=== PATIENT | female | born 1975 | race Caucasian/White ===

== ENCOUNTER 2017-08-14 08:30 | Outpatient (RCR) | payer MEDICAID, SELFPAY | END 2017-08-14 23:59 | LOC: PT 08:30 | PROVIDERS: Visit Provider Orthopaedic Surgery | DX: M77.10 Lateral epicondylitis, unspecified elbow (principal) | CPT/HCPCS: 97010; 97014; 97035; 97110; 97140; 97161; G0283 ==

== ENCOUNTER → 2017-10-22 08:21 | Outpatient (CLI) | payer MEDICAID, SELFPAY ==
--- NOTE | 2017-10-22 08:25 | MM_ITS ---
MM Dig screening mamm BI w/CAD CAD Screening COMPARISON: Digital mammograms 10/17/2016 and 04/07/2015 INDICATION: There is a history of breast cancer in patient's mother diagnosed before menopause. TECHNIQUE: Standard CC and MLO images were obtained. R2 CAD reviewed. FINDINGS: Scattered fibroglandular densities are seen throughout both breast and the findings are bilateral and symmetrical. There is no suspicious lesion and there are no suspicious microcalcifications. IMPRESSION: Fibrofatty parenchyma with no suspicious lesion seen BI-RADS Category: 1 Negative RECOMMENDED FOLLOW-UP: 1YR - 1 YEAR FOLLOW-UP (A letter has been sent to the patient regarding results of the study.)
== END ==
PROVIDERS: PCP Emergency Medicine; Visit Provider Nurse Practitioner Obstetrics & Gynecology
DX: Z12.31 Encounter for screening mammogram for malignant neoplasm of breast (principal)
CPT/HCPCS: 77067

== ENCOUNTER 2017-11-06 14:14 | Emergency (ER) | payer MEDICAID, SELFPAY ==
[2017-11-06 14:16] VITALS: BP 154/87; PULSE 88; RESP 20; TEMP 37; O2SAT 99; BMI 42.9
--- NOTE | 2017-11-06 14:40 | CT_ITS ---
CT abdomen pelvis w con Ordering Physician: Antonio Castillo MD Patient Age: 42 years: Female HISTORY: ITS.REASON: RUQ abd pain, with nausea TECHNIQUE: Helical CT abdomen pelvis following 35 cc Isovue-370. However no oral contrast utilized. COMPARISON :None FINDINGS Lung bases appear clear no significant active disease. There may be some mild dependent atelectasis posterior lung bases.. Heart upper normal in size. .. Abdomen.: Liver unremarkable.. Spleen unremarkable. l. Pancreas. No ductal dilatation.. Head and body unremarkable. Note slight generous head and uncinate particularly on the coronal view... I believe it most likely reflects the downward tilting orientation and anatomy of the structures on the coronal image as the axial & sagittal image does not show any significant thickening or enlargement. The homogeneous architecture also noted with no discrete mass evident. Adrenals unremarkable.. Gallbladder. No calcified stones. No biliary ductal dilatation Kidneys appear normal. Normal enhancement. No lesions. No calculi. No obstruction. Aorta and branches unremarkable. GI tract. Appendix normal. Terminal ileum unremarkable. Small bowel normal caliber no wall thickening or dilatation Large bowel mild to moderate stool and gas throughout the colon. No significant constipation. There may be some trace some minimal liquid stool proximal right colon but this is unimpressive. Prominent fatty changes at the ileocecal valve reflecting ileocecal lipomatosis here.. Benign incidental feature Pelvis. Hysterectomy. Postsurgical changes and clips at the pelvis. No adnexal masses. No free fluid nor free air in the abdomen or pelvis IMPRESSION no acute findings in the abdomen or pelvis. No urinary tract calculi nor obstruction. Appendix is normal. No bowel dilatation Mild to moderate in colon. Moderate gas. No constipation Slight generous head of pancreas on coronal view most likely related to its position/anatomy Not felt to be of significance but suggest consider correlate amylase and lipase if epigastric pain Numerous moderate size nodes of the groin nonspecific. No pelvic nor mesenteric nor retroperitoneal adenopathy. :
--- NOTE | 2017-11-06 14:41 | US_ITS ---
US gallbladder Ordering Physician: Antonio Castillo MD Patient Age: 42 years: Female HISTORY: ITS.REASON: ruq abd pain nausea. Diarrhea RUQ pain. CT today as well TECHNIQUE: Right quadrant ultrasound COMPARISON : CT abdomen from today FINDINGS Pancreas. Head, body pancreas unremarkable. The tail is obscured by overlying gas Liver. No focal lesions. No biliary ductal dilatation. Diffuse fatty changes of liver. Slightly more focal fatty suggested noted. No significant findings on CT . Common duct unremarkable. Portal vein normal caliber. Gallbladder.,,,comet Tail effect seen in gallbladder. Likely reflect 2 foci of cholesterolosis gallbladder, with possible small 3 mm polyp. It. No gallbladder dilatation... Borderline gallbladder wall thickening in some regions. 3.2 mm common duct Right kidney. Normal 10.4 cm in length IMPRESSION: 1. Gallbladder. No gallstones Note 2 foci of Cholesterolosis at Gallbladder likely present at gallbladder wall Possible less than 3 mm gallbladder polyp also noted towards anterior wall as well . 2. Liver with Diffusely changes liver. Increased small area slightly more focal focal fatty change noted anterior liver No significant findings at liver.
[2017-11-06 14:50] LABS: Basophils % 0.3 % (0.1-2.0); Eosinophils # 0.3 K/mm3 (0.0-0.4); Eosinophils % 3.5 % (0.1-12.0); Hematocrit 44.8 % (37.0-47.0); Hemoglobin 14.9 g/dL (12.2-16.2); Lymphocytes # 2.4 K/mm3 (0.7-4.5); Lymphocytes % 27.9 K/mm3 (10-50); Mean Corpuscular HGB Conc 33.2 g/dL (31.8-35.4); Mean Corpuscular Volume 90.3 fl (81-99); Mean Platelet Volume 7.8 fl (7.4-10.4); Monocytes # 0.5 K/mm3 (0.1-1.0); Monocytes % 5.3 % (1.7-9.3); Neutrophils # 5.5 K/mm3 (1.8-7.8); Neutrophils % 62.9 % (37.0-80.0); Platelet Count 353 K/mm3 (142-424); Red Blood Count 4.96 M/mm3 (4.20-5.40); Red Cell Distribution Width 13.5 % (11.5-17.5); White Blood Count 8.7 K/mm3 (4.8-10.8)
[2017-11-06 15:00] LABS: Microscopic, Urine URINE MICROSCOPIC (MICROSCOPIC)
[2017-11-06 15:07] LABS: Appearance,Urine CLEAR (Clear); Bilirubin,Urine Negative (Negative); Blood, Urine TRACE-I (Negative); Color,Urine YELLOW (Yellow); Glucose,Urine (UA) Negative (Negative); Ketones,Urine Negative (Negative); Leukocyte Esterase,Urine Negative (Negative); Nitrate,Urine Negative (Negative); PH,Urine 5.5 (5.0-8.5); Protein,Urine Negative (Negative); Specific Gravity, Urine 1.025 (1.005-1.030); Urobilinogen,Urine 0.2 EU/dl (0.2)
[2017-11-06 15:13] LABS: Alanine Aminotransferase 39 U/L (12-78); Albumin Level 3.4 gm/dL (3.4-5.0); Albumin/Globulin Ratio 0.8 (1.1-1.8); Alkaline Phosphatase 120 U/L (46-116); Amylase 34 U/L (25-125); Anion Gap 12.1 mEq/L (5-15); Aspartate Amino Transferase 22 U/L (15-37); Bilirubin,Total 0.2 mg/dL (0.2-1.0); Blood Urea Nitrogen 9 mg/dL (7-18); Calcium 8.4 mg/dL (8.5-10.1); Carbon Dioxide 27 mmol/L (21.0-32.0); Chloride 104 mmol/L (98-107); Creatinine Clearance Estimated 78 mL/min (0-300); Creatinine,Serum 0.82 mg/dL (0.55-1.02); Estimated Glomerular Filt Rate 77 ml/min (>60); GFR (African American) 93 ML/MIN (>60); Globulin 4.1 gm/dl (1.3-3.2); Glucose 107 mg/dL (74-106); Lipase 93 u/L (73-393); Potassium 4.1 mmoL/L (3.5-5.1); Sodium 139 mmol/L (136-145); Total Protein,Serum 7.5 gm/dL (6.4-8.2)
[2017-11-06 15:27] LABS: Bacteria,Urine 2+ /lpf; Squamous Epithelial Cell,Urine 20-50 #/hpf (0-5)
[2017-11-06 16:12] VITALS: BP 127/89; PULSE 55; RESP 18; O2SAT 100
--- NOTE | 2017-11-06 16:57 | HMH.EDGENADL ---
ED Disposition Clinical Impression: RUQ abdominal pain Disposition: Home, Self-Care Condition on Discharge: Good Instructions: DI for Acute Abdomen Additional Instructions: Please take the medications prescribed as directed, follow-up with Dr. Freeman at your earliest convenience for additional outpatient workup (to include a HIDA scan). Prescriptions: Ondansetron [Zofran 4mg ODT] 4 mg PO QIDP PRN #20 tab.rapdis PRN Reason: Nausea Tramadol HCl [Ultram 50mg tablet] 50 mg PO QIDP PRN #8 tab PRN Reason: Moderate Pain Referrals: Chito Freeman MD [Primary Care Provider] - Time of Disposition: 17:10 - Critical Care Critical Care Time: No Attestation: On 11/06/17, the high probability of a clinically significant, sudden or life threatening deterioration of the following system(s) required my full and direct attention, intervention and personal management. The time I documented below is in addition to time spent performing reported procedures but includes the following listed in this critical care notation. Medical Decision Making - Medical Records Medical records reviewed: Yes: I reviewed the patient's medical records. - Lazaro Inquiry Pt receiving controlled substance: No Vital Signs: 11/06/17 14:16 11/06/17 16:12 11/06/17 17:32 Temperature 98.6 F 98.0 F Temperature Source Oral Oral Pulse Rate 60 Pulse Rate [Right Radial] 88 55 L Respiratory Rate 20 18 16 Blood Pressure 112/66 Blood Pressure [Right Arm] 154/87 127/89 Blood Pressure Mean [Right Arm] 109 101 Blood Pressure Source Automatic Cuff Blood Pressure Source [Right Arm] Automatic Cuff Automatic Cuff Blood Pressure Position Sitting Blood Pressure Position [Right Arm] Supine Sitting 02 Sat by Pulse Oximetry 99 100 Oxygen Delivery Method Room Air Room Air Room Air - Lab Data Lab results reviewed: Yes: I reviewed the patient's lab results. Lab Results 11/06/17 14:40: WBC 8.7, RBC 4.96, Hgb 14.9, Hct 44.8, MCV 90.3, MCH 30.0, MCHC 33.2, RDW 13.5, Plt Count 353, MPV 7.8, Neut % (Auto) 62.9, Lymph % (Auto) 27.9, [place] % (Auto) 5.3, Eos % (Auto) 3.5, Baso % (Auto) 0.3, Neut # (Auto) 5.5, Lymph # (Auto) 2.4, [place] # (Auto) 0.5, Eos # (Auto) 0.3, Baso # (Auto) 0.0 11/06/17 14:40: Sodium 139, Potassium 4.1, Chloride 104, Carbon Dioxide 27, Anion Gap 12.1, BUN 9, Creatinine 0.82, Estimated Creat Clear 78, Estimated GFR 77, Est GFR ( Amer) 93, Glucose 107 H, Calcium 8.4 L, Total Bilirubin 0.2, AST 22, ALT 39, Alkaline Phosphatase 120 H, Total Protein 7.5, Albumin 3.4, Globulin 4.1 H, Albumin/Globulin Ratio 0.8 L, Amylase 34, Lipase 93 11/06/17 14:45: Urine Color Yellow, Urine Appearance Clear, Urine pH 5.5, Ur Specific [place] 1.025, Urine Protein Negative, Urine Glucose (UA) Negative, Urine Ketones Negative, Urine Blood Trace-i, Urine Nitrate Negative, Urine Bilirubin Negative, Urine Urobilinogen 0.2, Ur Leukocyte Esterase Negative, Urine RBC None, Urine WBC 3-5, Ur Squamous Epith Cells 20-50, Urine Bacteria 2+ Result diagrams: 11/06/17 14:40 11/06/17 14:40 Orders (Tests/Meds): ED MEDICATIONS Discontinued Medications Generic Name Dose Route Start Last Admin Trade Name Alexsandra PRN Reason Stop Dose Admin Hydrocodone Bitart/Acetaminophen 1 tab 11/06/17 17:01 11/06/17 17:10 [place]camore 10/325mg Tablet PO 11/06/17 17:02 1 tab ONCE ONE Administration Sodium Chloride 1,000 mls @ 999 mls/hr 11/06/17 14:45 11/06/17 14:46 Sod Chlor 0.9% 1000ml Bag IV 11/06/17 15:45 999 mls/hr .Q1H1M MITCH Administration Iopamidol 75 ml 11/06/17 15:24 11/06/17 15:25 [id number]-802; 100ml Vial IV 11/06/17 15:25 75 ml ONCE ONE Administration Ketorolac Tromethamine 30 mg 11/06/17 14:32 11/06/17 14:46 Toradol 30mg/Ml Vial IV 11/06/17 14:33 30 mg ONCE ONE Administration Morphine Sulfate 4 mg 11/06/17 15:59 11/06/17 16:08 Morphine 4mg/Ml Syringe IV 11/06/17 16:00 4 mg ONCE ONE Administration Ondan
[2017-11-06 17:32] VITALS: BP 112/66; PULSE 60; RESP 16; TEMP 36.7; O2SAT 97
== END 2017-11-06 17:34 | disposition home or self-care (01) ==
PROVIDERS: Emergency Provider Emergency Medicine; PCP Internal Medicine Adolescent Medicine
DX: R10.11 Right upper quadrant pain (principal); R11.2 Nausea with vomiting, unspecified; Z88.2 Allergy status to sulfonamides; Z88.6 Allergy status to analgesic agent
CPT/HCPCS: 74177; 76705; 80053; 81001; 82150; 83690; 85025; 87086; 96365; 96375; 99282; 99283; J2405; Q9967

== ENCOUNTER → 2017-11-13 09:49 | Outpatient (CLI) | payer MEDICAID, SELFPAY ==
--- NOTE | 2017-11-13 09:54 | NM_ITS ---
NM hepatobiliary wo pharm HISTORY: Right upper quadrant pain ITS.REASON: ABDOMINAL PAIN ORDERING PHYSICIAN: Chito Freeman MD PATIENT AGE: 42 years COMPARISON: 11/06/2017 DOSE: 8.44 mCi Choletec Fatty meal: Ensure. Pain is reported following a fatty meal FINDINGS: Homogeneous activity is present within the hepatic parenchyma. Activity is present in the gallbladder by 30 minutes. Activity is present in the small bowel by 10 minutes. The gallbladder ejection fraction is calculated to be 58%. The patient did report pain with fatty meal. IMPRESSION: No evidence of common or cystic duct obstruction with normal gallbladder ejection fraction
== END ==
PROVIDERS: PCP Internal Medicine Adolescent Medicine; Visit Provider Internal Medicine Adolescent Medicine
DX: R10.11 Right upper quadrant pain (principal)
CPT/HCPCS: 78226; A9537

== ENCOUNTER → 2017-12-19 06:08 | Outpatient (CLI) | payer MEDICAID, SELFPAY ==
--- NOTE | 2017-12-19 | NM_ITS ---
History and Indications: Chest pain, fatigue abnormal EKG tobacco use. Procedure: Patient exercised on Hubert protocol 6 metastases and 30 seconds, resting heart rate was 61 bpm resting blood pressure 134/81 with exercise maximum heart rate achieved was 1 49 bpm which is equal to 83% of the maximum predicted heart rate and a blood pressure was 190/85. Test was started due to shortness of breath and fatigue patient denied any complained of chest pain. Patient has adequate exercise capacity achieved 7mets of workload on treadmill, the blood pressure response to exercise was adequate. Patient did not achieve the target heart rate Electrocardiogram: Resting electrocardiogram showed sinus rhythm, with exercise there is less than 1.[address] segment depression noted from the baseline EKG. The EKG portion of the exercise Myoview is nondiagnostic as patient did not achieve the target heart rate. Cardiac stress and resting SPECT images: Cardiac stress and rest SPECT images were obtained using technetium 99 Myoview 10.0 mCi at stress and 9.9 mCi at rest, gated SPECT further analysis of segmental wall motion and calculation of the ejection fraction also done. Cardiac stress and rest SPECT images show decreased tracer activity in the anterior apical wall which improves on the resting images suggestive of reversible ischemia, computer derived ejection fraction is 59% with mild apical wall motion abnormality, right ventricle is normal size and contractility. Conclusion: 1. The EKG portion of the exercise Myoview is nondiagnostic as patient did not achieve the target heart rate, patient has a adequate exercise capacity achieved 7mets of workload on treadmill, the blood pressure response to exercise was adequate, there was no exercise-induced chest discomfort, test was started due to shortness of breath. 2. Scintigraphic evidence of mild reversible ischemia involving the anteroapical and apical wall, computer derived ejection fraction is 59% with segmental wall motion abnormality described above, right ventricle is normal size and contractility. 3. Abnormal exercise Myoview study.
== END ==
PROVIDERS: PCP Internal Medicine Adolescent Medicine; Visit Provider Internal Medicine Adolescent Medicine
DX: R07.9 Chest pain, unspecified (principal)
CPT/HCPCS: 78452; 93017; A9502

== ENCOUNTER → 2018-01-08 08:13 | Outpatient (CLI) | payer MEDICAID, SELFPAY ==
[2018-01-08 09:08] LABS: Anion Gap 12.2 mEq/L (5-15); Blood Urea Nitrogen 13 mg/dL (7-18); Calcium 9.1 mg/dL (8.5-10.1); Carbon Dioxide 28 mmol/L (21.0-32.0); Chloride 103 mmol/L (98-107); Creatinine,Serum 0.86 mg/dL (0.55-1.02); Estimated Glomerular Filt Rate 73 ml/min (>60); GFR (African American) 88 ML/MIN (>60); Glucose 100 mg/dL (74-106); Potassium 4.2 mmoL/L (3.5-5.1); Sodium 139 mmol/L (136-145)
== END ==
PROVIDERS: PCP Internal Medicine Adolescent Medicine; Visit Provider Physician Assistant
DX: I50.30 Unspecified diastolic (congestive) heart failure (principal); R94.30 Abnormal result of cardiovascular function study, unspecified; R06.00 Dyspnea, unspecified; R60.9 Edema, unspecified; Z72.0 Tobacco use
CPT/HCPCS: 36415; 80048

== ENCOUNTER → 2018-01-15 12:47 | Outpatient (CLI) | payer MEDICAID, SELFPAY ==
[2018-01-15 14:37] LABS: Anion Gap 15.6 mEq/L (5-15); Blood Urea Nitrogen 12 mg/dL (7-18); Carbon Dioxide 29 mmol/L (21.0-32.0); Chloride 98 mmol/L (98-107); Creatinine,Serum 0.94 mg/dL (0.55-1.02); Estimated Glomerular Filt Rate 66 ml/min (>60); GFR (African American) 79 ML/MIN (>60); Glucose 107 mg/dL (74-106); Potassium 3.6 mmoL/L (3.5-5.1); Sodium 139 mmol/L (136-145)
== END ==
PROVIDERS: PCP Internal Medicine Adolescent Medicine; Visit Provider Physician Assistant
DX: G47.33 Obstructive sleep apnea (adult) (pediatric) (principal); R40.0 Somnolence; G47.9 Sleep disorder, unspecified; R06.83 Snoring
CPT/HCPCS: 36415; 80048; 95806

== ENCOUNTER → 2018-01-22 09:41 | Outpatient (CLI) | payer MEDICAID, SELFPAY ==
[2018-01-22 11:02] LABS: Anion Gap 10.7 mEq/L (5-15); Blood Urea Nitrogen 9 mg/dL (7-18); Calcium 9.1 mg/dL (8.5-10.1); Carbon Dioxide 30 mmol/L (21.0-32.0); Chloride 102 mmol/L (98-107); Creatinine,Serum 0.84 mg/dL (0.55-1.02); Estimated Glomerular Filt Rate 75 ml/min (>60); GFR (African American) 90 ML/MIN (>60); Glucose 92 mg/dL (74-106); Potassium 3.7 mmoL/L (3.5-5.1); Sodium 139 mmol/L (136-145)
== END ==
PROVIDERS: Visit Provider Physician Assistant
DX: E87.6 Hypokalemia (principal); E86.0 Dehydration; Z72.0 Tobacco use; I51.9 Heart disease, unspecified; R94.30 Abnormal result of cardiovascular function study, unspecified
CPT/HCPCS: 36415; 80048; 83880

== ENCOUNTER → 2018-01-29 11:15 | Outpatient (CLI) | payer MEDICAID, SELFPAY ==
[2018-01-29 13:11] LABS: Anion Gap 10.6 mEq/L (5-15); Blood Urea Nitrogen 12 mg/dL (7-18); Calcium 8.7 mg/dL (8.5-10.1); Carbon Dioxide 27 mmol/L (21.0-32.0); Chloride 105 mmol/L (98-107); Creatinine,Serum 0.83 mg/dL (0.55-1.02); Estimated Glomerular Filt Rate 76 ml/min (>60); GFR (African American) 92 ML/MIN (>60); Glucose 88 mg/dL (74-106); Potassium 4.6 mmoL/L (3.5-5.1); Sodium 138 mmol/L (136-145)
== END ==
PROVIDERS: Visit Provider Internal Medicine
DX: E87.6 Hypokalemia (principal); I50.9 Heart failure, unspecified; I50.30 Unspecified diastolic (congestive) heart failure
CPT/HCPCS: 36415; 80048

== ENCOUNTER → 2018-02-17 12:43 | Outpatient (CLI) | payer MEDICAID, SELFPAY ==
--- NOTE | 2018-02-17 12:45 | CA_ITS ---
PROCEDURE: 2-D M-mode and color Doppler study INDICATIONS FOR THE TEST: Chest pain+ COPD Heart Murmur Tobacco Smoking+ Palpitations+ Fatigue+ Syncope Edema+ Hypertension Diabetes Mellitus Rheumatic Fever SOB+GUDINO+Obesity+Hyperlipidemia Family History HD+ Additional History dizziness, CHF, diastolic dysfunction, ALEXIA, GERD PATIENT INFORMATION HEIGHT: 65 WEIGHT:246 GENDER: Female B/P: 118/91 2-D/M-MODE INTERPRETATION: 2-D MEASUREMENTS OBSERVED VALUES IN CMS Right Ventricular Dimension (RVDd) 2.0 Interventricular Septum (Thickness)(IVsd) 0.9 Left Ventricular Internal Dimensions(LVIDd) 4.7 Left Ventricular Posterior Wall (Thickness)(LVPWd) 0.9 Aortic Root 2.8 Aortic Cusp Separation 2.0 Left Atrial Dimensions (LAD) 3.9 2D 1. Left atrium is upper limit of the normal size, left ventricle is normal size, there is no concentric left ventricular hypertrophy, visually estimated ejection fraction 55% with no obvious regional wall motion abnormality. 2. The right atrium and right ventricle are relatively normal size and function. 3. The aortic valve is minimally thickened and fibrosed. 4. The mitral and tricuspid valve are grossly normal. 5. The pulmonic valve is poorly visualized. 6. No significant pericardial effusion noted. DOPPLER INTERROGATION: Doppler interrogation of the aortic, mitral and tricuspid valvular presence of mild mitral and tricuspid regurgitation, tricuspid velocity insufficient for calculation of the right ventricular systolic pressure, diastolic parameters are within normal range. CONCLUSION: 1. Normal left ventricular size, visually estimated ejection fraction 55% with no obvious regional wall motion abnormality, diastolic parameters are within normal range. 2. Mild mitral and tricuspid regurgitation 3. No significant pericardial effusion noted.
== END ==
PROVIDERS: PCP Internal Medicine Adolescent Medicine; Visit Provider Internal Medicine
DX: R06.00 Dyspnea, unspecified (principal); I50.9 Heart failure, unspecified; Z72.0 Tobacco use
CPT/HCPCS: 93306

== ENCOUNTER → 2018-10-27 16:18 | Outpatient (CLI) | payer MEDICAID, SELFPAY ==
--- NOTE | 2018-10-27 16:23 | MM_ITS ---
MM Dig screening mamm BI w/CAD ORDERING PHYSICIAN : Carlos Owens MD PATIENT AGE: 43 years GENDER: Female COMPARISON: Bilateral screening mammograms from October 2017, 2016, 2015,April 2015 INDICATION: . Routine Screening Mammogram no hormones. No new complaints Family history. Mother with breast cancer age 30 TECHNIQUE: Standard CC and MLO images were obtained. R2 CAD reviewed. FINDINGS: Moderate residual fibroglandular elements throughout both breasts most evident central breast and towards upper outer quadrant. LEFT BREAST: . small focal densities at the deep left breast more evident today previous comparison studies. The area labeled X is I suspect has shown subtle progression now measures up to 8 mm x 4 mm.. This Area labeled X has become slightly more evident over the past 2 years. Other areas may be stable merely accentuated by projection. Suggest CC & MLO spot views, with full 90 degrees view left breast along with ultrasound survey left breast..Cautious approach warranted particularly noting positive family history RIGHT BREAST: slight situation of where most likely fibroglandular at the deep upper outer quadrant right breast. This is most notable on MLO view. These likely are stable features /2... Air more pronounced than previous studies I would suggest include spot MLO and 90 degrees and cc view of this area well stability. -------IMPRESSION: 1. Left breast. : Nodularity at deep breast is slightly more apparent on today's study. This may in part be due to technique but I would question subtle progression of density at X. - Recommend spot views & ultrasound LEFT breast to further evaluate 2. Right breast. Mild accentuation of fibroglandular elements in the deep breast on today's study. Most likely is due to technique but would suggest spot views here as well. BI-RADS Category: 0 Need Additional Imaging Evaluation RECOMMENDED FOLLOW-UP: IMM - IMMEDIATE FOLLOW-UP RECOMMENDED Additional spot views bilaterally along with ultrasound left breast (A letter has been sent to the patient regarding results of the study.)
== END ==
PROVIDERS: PCP Internal Medicine Adolescent Medicine; Visit Provider Nurse Practitioner Obstetrics & Gynecology
DX: Z12.31 Encounter for screening mammogram for malignant neoplasm of breast (principal)
CPT/HCPCS: 77067

== ENCOUNTER → 2018-11-05 11:13 | Outpatient (CLI) | payer MEDICAID, SELFPAY ==
[2018-11-05 12:19] LABS: Blood Urea Nitrogen 13 mg/dL (7-18); Calcium 8.9 mg/dL (8.5-10.1); Carbon Dioxide 26 mmol/L (21.0-32.0); Chloride 103 mmol/L (98-107); Creatinine,Serum 0.94 mg/dL (0.55-1.02); Estimated Glomerular Filt Rate 65 ml/min (>60); GFR (African American) 79 ML/MIN (>60); Glucose 100 mg/dL (74-106); Sodium 140 mmol/L (136-145)
== END ==
PROVIDERS: Nurse Practitioner Family; Visit Provider Internal Medicine
DX: I50.9 Heart failure, unspecified (principal); I51.89 Other ill-defined heart diseases; R05 Cough; R60.9 Edema, unspecified
CPT/HCPCS: 36415; 80048

== ENCOUNTER → 2018-11-17 13:31 | Outpatient (CLI) | payer MEDICAID, SELFPAY ==
--- NOTE | 2018-11-17 13:34 | US_ITS ---
MM Dig mamm BI DX w/CAD, US breast LT complete, US breast RT complete INDICATION: ORDERING PHYSICIAN: Carlos Owens MD PATIENT AGE: 43 years COMPARISON: None TECHNIQUE: Problem-solving views are performed of both breasts along with bilateral breast ultrasound with axilla. FINDINGS: There is average fibroglandular tissue. Right breast: The asymmetric density noted in the deep aspect of the right breast does appear to at least partially compress out consistent with fibroglandular tissue with no discrete mass apparent. There was some asymmetric density noted on the ML all in the inferior aspect of the right breast also appear to compress out. A small nodular opacity is noted inferiorly on the MLO measuring 5 mm probably unchanged given the difference in technique and positioning compared to the previous exams. Right breast ultrasound: At 9:00 there is a 4 mm cyst with some questionable wall thickening on the sagittal image versus artifact.. Small nodes are present in the axilla. Left breast: In the deep aspect of the left breast there is persistent nodularity noted with 2 nodular opacities. Focal spot compression views obtained with a smaller paddle demonstrate 2 well-defined 7 mm opacities. Focal spot MLO suggest at least one nodular density in the deep central aspect of the left breast. These are not demonstrated on ultrasound however.. Left breast ultrasound: No cystic or solid lesions apparent. IMPRESSION: No convincing evidence of malignancy. Probably benign findings. Benign appearing nodular opacities in the deep medial aspect of the left breast not demonstrated by ultrasound. Recommend bilateral 6 month mammographic follow-up with spot compression views as on today's exam BI-RADS Category: 3 Probably Benign Finding Short Term Follow-up RECOMMENDED FOLLOW-UP: 6M - 6 MONTH FOLLOW-UP (A letter has been sent to the patient regarding results of the study.)
== END ==
PROVIDERS: PCP Internal Medicine Adolescent Medicine; Visit Provider Nurse Practitioner Obstetrics & Gynecology
DX: R92.8 Other abnormal and inconclusive findings on diagnostic imaging of breast (principal)
CPT/HCPCS: 76641; 77066

== ENCOUNTER → 2018-12-10 07:38 | Outpatient (CLI) | payer MEDICAID, SELFPAY ==
[2018-12-10 08:19] LABS: Anion Gap 11.3 mEq/L (5-15); Blood Urea Nitrogen 10 mg/dL (7-18); Calcium 8.6 mg/dL (8.5-10.1); Carbon Dioxide 30 mmol/L (21.0-32.0); Chloride 101 mmol/L (98-107); Creatinine,Serum 0.95 mg/dL (0.55-1.02); Estimated Glomerular Filt Rate 65 ml/min (>60); GFR (African American) 78 ML/MIN (>60); Glucose 116 mg/dL (74-106); Potassium 3.3 mmoL/L (3.5-5.1); Sodium 139 mmol/L (136-145)
== END ==
PROVIDERS: Nurse Practitioner Family; Visit Provider Internal Medicine
DX: I50.33 Acute on chronic diastolic (congestive) heart failure (principal); I51.89 Other ill-defined heart diseases; R06.02 Shortness of breath; R60.0 Localized edema; Z72.0 Tobacco use
CPT/HCPCS: 36415; 80048

== ENCOUNTER → 2019-02-04 13:28 | Outpatient (CLI) | payer MEDICAID, SELFPAY ==
[2019-02-04 16:08] LABS: Anion Gap 12.4 mEq/L (5-15); Blood Urea Nitrogen 9 mg/dL (7-18); Calcium 8.4 mg/dL (8.5-10.1); Carbon Dioxide 25 mmol/L (21.0-32.0); Chloride 105 mmol/L (98-107); Creatinine,Serum 0.79 mg/dL (0.55-1.02); Estimated Glomerular Filt Rate 79 ml/min (>60); GFR (African American) 96 ML/MIN (>60); Glucose 79 mg/dL (74-106); Potassium 4.4 mmoL/L (3.5-5.1); Sodium 138 mmol/L (136-145)
== END ==
PROVIDERS: Visit Provider Urology
DX: R00.2 Palpitations (principal); R06.02 Shortness of breath
CPT/HCPCS: 36415; 80048; 83880

== ENCOUNTER → 2019-02-16 07:05 | Outpatient (CLI) | payer MEDICAID, SELFPAY ==
--- NOTE | 2019-02-16 07:07 | NM_ITS ---
SPECT MYOCARDIAL PERFUSION SCAN, REST AND STRESS: EXERCISE STRESS: [facility] REVIEW QGS EF AND WALL MOTION EVALUATION: QPS - PERFUSION EVALUATION: HISTORY: SOB, CHF, Tobacco use, Family history PROCEDURE: Rest imaging performed after administration of10.20 millicuries Tc MIBI. Dose administered at7:25 a.m., with imaging thereafter. Stress imaging was then performed following6 minutes 30 seconds of exercise stress. The patient achieved a heart otap112 with projected heart rate of151 . Resting BP128/78 with stress 145/80. At maximum exercise stress,29.6 millicuries Tc MIBI administered at9:25 a.m. with [id number] minutes thereafter. FINDINGS: Perfusion Evaluation: The single slice spect images as well as the [facility] bull's-eye data summary were reviewed. Wall Motion and Ejection Fraction Evaluation: Gated SPECT review and analysis used to evaluate these features. There is a 54 % left ventricular ejection fraction. There seems to be good wall motion Stress images reveal decreased activity in the mid anterior apical wall which does slightly improved with rest images. Gated images calculated ejection fraction of 54% with mid anterior apical hypokinesis IMPRESSION: High risk abnormal stress test with reversible ischemia in the mid anterior apical wall accompanied by regional wall motion abnormality in the above area in
--- NOTE | 2019-02-16 07:33 | HMH.ITSHM ---
Current Home Medications as stated by this patient Jaclyn Gamez or district sales representative. [BREO SPIRIVA LASIX SPIRONOLACTONE METOPROLOL
== END ==
PROVIDERS: PCP Internal Medicine Adolescent Medicine; Visit Provider Internal Medicine
DX: I51.89 Other ill-defined heart diseases (principal); R00.2 Palpitations; R06.02 Shortness of breath
CPT/HCPCS: 78452; 93017; A9502

== ENCOUNTER → 2019-04-02 10:53 | Outpatient (CLI) | payer MEDICAID, SELFPAY ==
[2019-04-02 15:44] LABS: Anion Gap 12.4 mEq/L (5-15); Blood Urea Nitrogen 8 mg/dL (7-18); Calcium 8.6 mg/dL (8.5-10.1); Carbon Dioxide 27 mmol/L (21.0-32.0); Chloride 103 mmol/L (98-107); Creatinine,Serum 0.68 mg/dL (0.55-1.02); Estimated Glomerular Filt Rate 94 ml/min (>60); GFR (African American) 114 ML/MIN (>60); Glucose 84 mg/dL (74-106); Potassium 4.4 mmoL/L (3.5-5.1); Sodium 138 mmol/L (136-145)
== END ==
PROVIDERS: Visit Provider Physician Assistant
DX: I50.33 Acute on chronic diastolic (congestive) heart failure (principal); I51.89 Other ill-defined heart diseases; J44.9 Chronic obstructive pulmonary disease, unspecified; K21.9 Gastro-esophageal reflux disease without esophagitis; R06.02 Shortness of breath; R07.9 Chest pain, unspecified; R60.0 Localized edema; Z72.0 Tobacco use
CPT/HCPCS: 36415; 80048; 83880

== ENCOUNTER → 2019-09-29 15:09 | Outpatient (CLI) | payer OTHER, SELFPAY ==
[2019-09-29 15:12] LABS: Adenovirus F 40/41, stool Not Detected (NotDetected); Astrovirus Not Detected (NotDetected); Campylobacter Not Detected (NotDetected); Clostridium Difficile A/B, PCR Not Detected (NotDetected); Cryptosporidium Not Detected (NotDetected); Cyclospora Cayetanesis Not Detected (NotDetected); Entamoeba histolytica Not Detected (NotDetected); Enteroaggregative E coli Not Detected (NotDetected); Enteropathogenic E coli Not Detected (NotDetected); Enterotoxigenic E coli Not Detected (NotDetected); Giardia lamblia Not Detected (NotDetected); Norovirus Not Detected (NotDetected); Plesimonas Shigalloides, PCR Not Detected (NotDetected); Rotavirus A Not Detected (NotDetected); Salmonella, PCR Not Detected (NotDetected); Sapovirus Not Detected (NotDetected); Shiga-like toxin E coli Not Detected (NotDetected); Shigella Enterovasive E coli Not Detected (NotDetected); Vibrio Cholerae Not Detected (NotDetected); Vibrio, PCR Not Detected (NotDetected); Yersinia Entercolitica, PCR Not Detected (NotDetected)
== END ==
PROVIDERS: Visit Provider Nurse Practitioner Family
DX: R19.7 Diarrhea, unspecified (principal)
CPT/HCPCS: 87507

== ENCOUNTER → 2019-10-29 07:44 | Outpatient (CLI) | payer OTHER, SELFPAY ==
--- NOTE | 2019-10-29 07:44 | US_ITS ---
PROCEDURE: US GALLBLADDER CLINICAL INDICATION: ruq pain COMPARISON: No exams were available for comparison FINDINGS: Pancreas: Unremarkable/Not well seen Liver: Unremarkable. There is appropriate direction of blood flow within a non dilated portal vein. Right kidney: Unremarkable appearing. No hydronephrosis. Gallbladder: No stones are evident. There is no gallbladder wall thickening. Common duct is normal in diameter. IMPRESSION: Negative gallbladder ultrasound. No stones evident. Dictated by: Ranulfo Rashid MD 10/29/2019 15:59 Electronically signed by Ranulfo Rashid MD in [place] 10/29/2019 15:59
== END ==
PROVIDERS: PCP Internal Medicine Adolescent Medicine; Visit Provider Surgery
DX: R10.11 Right upper quadrant pain (principal)
CPT/HCPCS: 76705

== ENCOUNTER → 2019-10-30 08:43 | Outpatient (CLI) | payer OTHER, SELFPAY ==
--- NOTE | 2019-10-30 08:43 | CT_ITS ---
PROCEDURE: CT ABDOMEN PELVIS W CON CLINICAL INDICATION: diarrhea, RLQ pain Diarrhea, right lower quadrant pain COMPARISON: ABDPELWO CT abdomen pelvis wo con from 01/18/2018 TECHNIQUE: IV Contrast: 75ML OPTIRAY 350 Oral Contrast 450ml Redicat Axial images obtained with sagittal and coronal reformats. All CT scans at the facility use one or more dose reduction, viz: automated exposure control, ma/kV adjustment per patient size (including targeted exams where dose is matched to indication, i.e. head), or iterative reconstruction technique. FINDINGS: LOWER THORAX: No acute finding ABDOMEN & PELVIS: The liver, spleen, adrenal glands, pancreas, gallbladder, and kidneys have an unremarkable appearance. No evidence of appendicitis, diverticulitis, intestinal obstruction, or free air. There are post hysterectomy changes. There is a 2 cm right ovarian cyst. No pelvic mass abnormal fluid collection or focal inflammatory change. No acute bony anomaly. No abdominal wall hernias. IMPRESSION: No acute finding Dictated by: Ranulfo Rashid MD 10/31/2019 13:30 Electronically signed by Ranulfo Rashid MD in [place] 10/31/2019 13:30
== END ==
PROVIDERS: PCP Internal Medicine Adolescent Medicine; Visit Provider Surgery
DX: R10.31 Right lower quadrant pain (principal)
CPT/HCPCS: 74177; Q9967

== ENCOUNTER → 2019-12-20 08:01 | Outpatient (CLI) | payer OTHER, SELFPAY ==
[2019-12-20 08:21] LABS: Adenovirus,PCR Not Detected (NotDetected); Bordetella Pertussis Not Detected (NotDetected); Chlamydophila Pneumoniae, PCR Not Detected (NotDetected); Coronavirus 19, PCR Not Detected (NotDetected); Coronavirus 229E Not Detected (NotDetected); Coronavirus NL63 Not Detected (NotDetected); Coronavirus OC43 Not Detected (NotDetected); Coronovirus HKU1,PCR Not Detected (NotDetected); Human Metapneumovirus Not Detected (NotDetected); Influenza A, PCR Not Detected (NotDetected); Influenza AH1, 2009 Not Detected (NotDetected); Influenza AH1, PCR Not Detected (NotDetected); Influenza AH3,PCR Not Detected (NotDetected); Influenza B, PCR Not Detected (NotDetected); Mycoplasma Pneumoniae, PCR Not Detected (NotDected); Parainfluenza 1, PCR Not Detected (NotDetected); Parainfluenza 2, PCR Not Detected (NotDetected); Parainfluenza 3, PCR Not Detected (NotDetected); Parainfluenza 4, PCR Not Detected (NotDetected); Respiratory Syncytial Virus Not Detected (NotDetected); Rhinovirus/Enterovirus Not Detected (NotDetected)
== END ==
PROVIDERS: PCP Internal Medicine Adolescent Medicine; Visit Provider Surgery
DX: R11.2 Nausea with vomiting, unspecified; Z01.818 Encounter for other preprocedural examination
CPT/HCPCS: 87581; 87633; 87798

== ENCOUNTER 2019-12-22 08:15 | Day surgery (SDC) | payer OTHER, SELFPAY ==
--- NOTE | 2019-12-17 11:37 | SUR.PREOP ---
12/17/2019--PHONE CALL MADE TO PATIENT. PATIENT UNDERSTANDS THAT LAB WORK AND COVID TESTING NEEDS TO BE COMPLETED @ 0800 ON 12/20/2019. PATIENT UNDERSTANDS IF LAB WORK AND COVID-19 TESTS ARE NOT COMPLETED BY 12PM ON THAT DATE, THE SURGERY SCHEDULED WILL BE CANCELLED AND RESCHEDULED FOR ANOTHER TIME.
[2019-12-21 12:20] VITALS: BMI 41.5
[2019-12-22 08:38] VITALS: BP 128/77; PULSE 63; RESP 18; TEMP 36.9; O2SAT 97
--- NOTE | 2019-12-22 09:31 | HMH.GSHP ---
HPI HPI: Patient presents for EGD and colonoscopy. She is a 44-year-old female recently referred by cardiology for possible gallbladder . I had seen the patient about 2 years ago as a referral for upper endoscopy. She had undergone gallbladder work-up in the spring 2017 which revealed possible cholesterol polyp and HIDA scan revealed ejection fraction of 58%. She did undergo upper endoscopy which revealed acute duodenitis and chronic diffuse gastritis with moderate hiatal hernia with positive CLOtest. Patient states that about 2 months ago she had the flu . This was characterized by fever, vomiting, cough, and myalgias. She has subsequently had nausea and diarrhea. She has had a dull pain in the right abdomen. She states that she underwent stool testing which was negative. It was recommended she take a probiotic by her primary care provider but she has been unable to afford this. Of note, she has never had prior colonoscopy. When I saw her her symptoms seem rather atypical for gallbladder. I did have her undergo follow-up gallbladder ultrasound which was unremarkable. She had a CT scan of the abdomen pelvis performed which is unremarkable. Her symptoms persist characterized by loose stools and right-sided abdominal pain. Given the fact that the patient had previous endoscopy revealing gastritis and duodenitis with positive SAMMY testing will plan to proceed with upper endoscopy. Also plan to add a colonoscopy as she is never had prior colonoscopy and is having appreciable change in her bowel habits. Plan for biopsies of grossly unremarkable. If biopsies and EGD and colonoscopy are endoscopically unremarkable may consider repeating her HIDA scan. [facility] History I have reviewed the patient's past medical history: Yes Medical History: Reports:: Congestive Heart Failure, Gastroesophageal Reflux Disease(GERD) Denies:: Cancer, Diabetes Mellitus Type 1, Diabetes Mellitus Type 2, Hypertension, Internal Pacemaker, Lung Disease, MRSA, Seizures *Have you ever received a pneumonia vaccine?: No *Have you received a flu vaccine this season?: No Laterality Cases: Right: Carpal Tunnel Release, Bilateral: Myringotomy (Ear Tubes), Tonsillectomy, Other Other Surgeries: Yes: Cardiac Catheterization, Dilation and Curettage, EGD, Hysterectomy-Partial, Tubal Ligation, Other. No: Pacemaker Amputation: No Fractures: Yes (ARM) - *Social History Educational Level: Completed High School Smoking Status: Current every day smoker Tobacco Type: cigarettes # Packs/Day (cigarettes): 1 Alcohol Intake: never Alcohol Intake Frequency:: holidays/special occasions only Substance Use Type: denies use *Occupational Status:: unemployed Housing: house Household Members: spouse, family *Travel in the last 8 weeks: None Family Hx:: Unable to obtain Review of Systems - Review of Systems Review of systems:: pertinent systems reviewed and negative unless documented below Meds Home Medications Medication Instructions Recorded Confirmed Type Ondansetron [Zofran 4mg ODT] 4 mg PO Q8HP PRN #20 tab.rapdis 09/28/19 12/22/19 Rx furosemide 40 mg tablet 40 mg PO BID #180 tab 10/22/19 12/22/19 Rx Amlodipine Besylate [Amlodipine 5 mg PO DAILY 12/22/19 12/22/19 History 5mg tab] Isosorbide Mononitrate [Imdur 60mg 60 mg PO DAILY 12/22/19 12/22/19 History ER tablet] Lansoprazole 30 mg PO DAILY 12/22/19 12/22/19 History Metoprolol Succinate 25 mg PO DAILY 12/22/19 12/22/19 History [id number]/Sod Sulf,Bicarb,Cl/KCl 240 ml PO Q10M 12/22/19 12/22/19 History [Gavilyte-C Solution] Spironolactone 50 mg PO BID 12/22/19 12/22/19 History Allergies Allergy/AdvReac Type Severity Reaction Status Date / Time codeine [CODEINE] Allergy Mild Verified 12/21/19 12:19 sulfamethoxazole Allergy Mild Verified 12/21/19 12:19 [From ] trimethoprim [From ] Allergy Mild Verified 12/21/19 12:19 Exam Vital signs and Labs for Last 24 Hours: Temp Pulse Resp BP Pu
[2019-12-22 09:35] VITALS: O2SAT 97
--- NOTE | 2019-12-22 09:56 | HMH.ANESCL ---
[facility] Anesthesia Checklist - Patient Identification Patient Identification: Arm Band, Verbal (Name & ) - Structural Data Admitted From: Home Planned Operative Procedure/s: EGD/colonoscopy Consent for Planned Operative Procedure(s) Verified: Yes Verified Documents: Surgical Consent, History and Physical - Chart Verification Results Verified: None (serology Covid negative) - Additional verifications Anesthesia Reactions: No - Airway Assessment C-Spine Mobility Assessed: Yes TMJ Mobility Assessed: Yes Dentition: Edentulous - Neurological Assessment Level of Consciousness: Awake, Alert, Appropriate, Follows Commands Hx Seizures: No Numbness or tingling in extremities: No - Anesthesia Plan Anesthesia Risk discussed: Yes Anesthesia Plan: Verified ASA Class: III Anesthesia Type: MAC [facility] History I have reviewed the patient's past medical history: Yes Medical History: Reports:: Congestive Heart Failure, Chronic Obstructive Pulmonary Disease (COPD), Gastroesophageal Reflux Disease(GERD), Hypertension Denies:: Cancer, Diabetes Mellitus Type 1, Diabetes Mellitus Type 2, Internal Pacemaker, Lung Disease, MRSA, Seizures *Have you ever received a pneumonia vaccine?: No *Have you received a flu vaccine this season?: No Comment:: ALEXIA noncompliant CPAP, angina, morbid obesity Anesthesia experience/problems:: None Laterality Cases: Right: Carpal Tunnel Release, Bilateral: Myringotomy (Ear Tubes), Tonsillectomy, Other Other Surgeries: Yes: Cardiac Catheterization, Dilation and Curettage, EGD, Hysterectomy-Partial, Tubal Ligation, Other. No: Pacemaker Amputation: No Fractures: Yes (ARM) - *Social History Educational Level: Completed High School Smoking Status: Current every day smoker Tobacco Type: cigarettes # Packs/Day (cigarettes): 2 Alcohol Intake: never Alcohol Intake Frequency:: holidays/special occasions only Substance Use Type: denies use *Occupational Status:: unemployed Housing: house Household Members: spouse, family *Travel in the last 8 weeks: None Family Hx:: Unable to obtain
[2019-12-22 10:30] VITALS: BP 98/60; PULSE 58; RESP 18; TEMP 36.1; O2SAT 94
--- NOTE | 2019-12-22 10:30 | HMH.SCOPE ---
- Procedure: Date: 12/22/19 Procedure Performed:: 1. Esophagogastroduodenoscopy with biopsies 2. Total colonoscopy to terminal ileum with biopsies and polypectomy Indications:: Patient presents for EGD and colonoscopy. She is a 44-year-old female recently referred by cardiology for possible gallbladder . I had seen the patient about 2 years ago as a referral for upper endoscopy. She had undergone gallbladder work-up in the spring 2017 which revealed possible cholesterol polyp and HIDA scan revealed ejection fraction of 58%. She did undergo upper endoscopy which revealed acute duodenitis and chronic diffuse gastritis with moderate hiatal hernia with positive CLOtest. Patient states that about 2 months ago she had the flu . This was characterized by fever, vomiting, cough, and myalgias. She has subsequently had nausea and diarrhea. She has had a dull pain in the right abdomen. She states that she underwent stool testing which was negative. It was recommended she take a probiotic by her primary care provider but she has been unable to afford this. Of note, she has never had prior colonoscopy. When I saw her her symptoms seem rather atypical for gallbladder. I did have her undergo follow-up gallbladder ultrasound which was unremarkable. She had a CT scan of the abdomen pelvis performed which is unremarkable. Her symptoms persist characterized by loose stools and right-sided abdominal pain. Given the fact that the patient had previous endoscopy revealing gastritis and duodenitis with positive SAMMY testing will plan to proceed with upper endoscopy. Also plan to add a colonoscopy as she is never had prior colonoscopy and is having appreciable change in her bowel habits. Plan for biopsies of grossly unremarkable. If biopsies and EGD and colonoscopy are endoscopically unremarkable may consider repeating her HIDA scan. Performing Provider:: Corky Callahan MD Referring Provider:: Bassam Sedation:: Propofol Procedure:: Patient was taken to endoscopy procedure room. Attention was first turned to upper endoscopy. After adequate intravenous sedation was achieved with anesthesia titration of propofol Olympus endoscope was inserted via the oropharynx and advanced through the esophagus. Overall esophagus appeared unremarkable. Stomach was cannulated and insufflated. Retroflexion revealed no evidence of any appreciable hiatal hernia. Gastric mucosal biopsies obtained for CLOtest for H. pylori. Pylorus was traversed. Within the duodenal bulb there was some appreciable duodenitis. Biopsies were obtained. Distal duodenum appeared unremarkable. Biopsies were obtained of the gastroesophageal junction to rule out Rachel's esophagus. Stomach was desufflated and the endoscope was withdrawn. Next attention was turned to colonoscopy. Variable stiffness Olympus colonoscope was inserted via the anus. It was advanced to the cecum without significant difficulty. Colonic preparation was fair with liquid stool and vegetable food matter in the colon. Ultimately ileocecal valve and appendiceal orifice were clearly identified. Colonoscope was advanced a generous distance into the terminal ileum which appeared grossly normal. Colonoscope was slowly withdrawn through the colon with careful surveillance. Thorough irrigation and suctioning was performed. Random biopsies were obtained of the right colon as well as the left colon. There were a couple of adenomatous appearing polyps in the distal transverse colon removed with cold cutting snare. She had some hyperplastic appearing rectosigmoid and a rectal polyp which was removed with cold biopsy forceps. Retroflexion within the rectum revealed no evidence of any pathologic internal hemorrhoids. Colonoscope was withdrawn. Findings:: Duodenitis Fair colonic preparation Distal hyperplastic appearing polyps Adenomatous appearing polyps in the distal transverse colon Recommendations:: Treat duod
[2019-12-22 10:40] VITALS: BP 111/59; PULSE 59; RESP 18; O2SAT 98
[2019-12-22 10:50] VITALS: BP 106/65; PULSE 50; RESP 18; O2SAT 98
[2019-12-22 11:02] VITALS: BP 105/72; PULSE 52; RESP 18; O2SAT 99
== END 2019-12-22 11:02 | disposition home or self-care (01) ==
LOC: OUTP 08:16
PROVIDERS: PCP Internal Medicine Adolescent Medicine; Visit Provider Surgery
PROC: 0DJ08ZZ Inspection of Upper Intestinal Tract, Via Natural or Artificial Opening Endoscopic (ICD-10-PCS; CPT 43235; principal; 2019-12-22 09:30)
DX: R11.2 Nausea with vomiting, unspecified (principal); R19.7 Diarrhea, unspecified; D12.2 Benign neoplasm of ascending colon; D12.4 Benign neoplasm of descending colon; D12.7 Benign neoplasm of rectosigmoid junction; D12.5 Benign neoplasm of sigmoid colon; D12.3 Benign neoplasm of transverse colon; Z88.8 Allergy status to other drugs, medicaments and biological substances; Z79.899 Other long term (current) drug therapy; Z88.5 Allergy status to narcotic agent
CPT/HCPCS: 45385; 45380; 44377; 87339

== ENCOUNTER → 2020-02-19 14:30 | Outpatient (CLI) | payer OTHER, SELFPAY ==
[2020-02-22 08:40] LABS: H. pylori Breath Test Positive (Negative)
== END ==
PROVIDERS: Visit Provider Surgery
DX: A04.8 Other specified bacterial intestinal infections (principal)
CPT/HCPCS: 83013

== ENCOUNTER → 2020-03-01 11:28 | Outpatient (CLI) | payer OTHER, SELFPAY ==
[2020-03-01 12:25] LABS: Basophils # 0.1 K/mm3 (0-0.2); Basophils % 0.8 % (0.1-2.0); Eosinophils # 0.3 K/mm3 (0.0-0.4); Eosinophils % 3.1 % (0.1-12.0); Hematocrit 43.8 % (37.0-47.0); Hemoglobin 14.7 g/dL (12.2-16.2); Lymphocytes # 2.2 K/mm3 (0.7-4.5); Lymphocytes % 24.4 % (10-50); Mean Corpuscular HGB Conc 33.6 g/dL (31.8-35.4); Mean Corpuscular Hemoglobin 30.2 pg (27.0-31.2); Mean Corpuscular Volume 89.8 fl (81-99); Mean Platelet Volume 8.3 fl (7.4-10.4); Monocytes # 0.5 K/mm3 (0.1-1.0); Monocytes % 5.2 % (1.7-9.3); Neutrophils % 66.6 % (37.0-80.0); Platelet Count 327 K/mm3 (142-424); Red Blood Count 4.88 M/mm3 (4.20-5.40)
[2020-03-01 13:00] LABS: Chloride 103 mmol/L (98-107); Sodium 139 mmol/L (136-145)
[2020-03-01 13:03] LABS: Alanine Aminotransferase 31 U/L (12-78); Albumin Level 3.8 g/dl (3.5-5.0); Albumin/Globulin Ratio 1.3 (1.1-1.8); Alkaline Phosphatase 89 U/L (38-126); Aspartate Amino Transferase 29 U/L (14-36); Bilirubin,Total 0.4 mg/dl (0.2-1.3); Blood Urea Nitrogen 10 mg/dl (7-17); Calcium 8.9 mg/dl (8.4-10.2); Carbon Dioxide 28 mmol/L (22.0-30.0); Estimated Glomerular Filt Rate 109 ml/min (>60); GFR (African American) 131 ML/MIN (>60); Globulin 2.9 g/dL (1.3-3.2); Glucose 89 mg/dl (74-100); Total Protein,Serum 6.7 g/dl (6.3-8.2)
[2020-03-01 13:20] LABS: 25-OH Vitamin D, Total 28.3 ng/mL (30-100)
[2020-03-02 20:02] LABS: Vitamin B12 259 pg/mL (232-1245)
== END ==
PROVIDERS: Visit Provider Internal Medicine Adolescent Medicine
DX: J43.9 Emphysema, unspecified (principal); R53.81 Other malaise; E55.9 Vitamin D deficiency, unspecified
CPT/HCPCS: 36415; 80053; 82306; 82607; 84443; 85025

== ENCOUNTER → 2020-03-03 11:52 | Outpatient (CLI) | payer OTHER, SELFPAY | PROVIDERS: PCP Internal Medicine Adolescent Medicine; Visit Provider Internal Medicine Adolescent Medicine | DX: J43.9 Emphysema, unspecified (principal) | CPT/HCPCS: 94060; 94618; 94726; 94729 ==

== ENCOUNTER → 2020-03-07 13:12 | Outpatient (CLI) | payer OTHER, SELFPAY | PROVIDERS: PCP Internal Medicine Adolescent Medicine; Visit Provider Nurse Practitioner Family | DX: G47.30 Sleep apnea, unspecified (principal); R53.83 Other fatigue; I50.9 Heart failure, unspecified | CPT/HCPCS: 95806 ==

== ENCOUNTER → 2020-03-10 15:19 | Outpatient (CLI) | payer OTHER, SELFPAY ==
[2020-03-13 16:54] LABS: H. pylori Breath Test Positive (Negative)
== END ==
PROVIDERS: Visit Provider Surgery
DX: A04.8 Other specified bacterial intestinal infections (principal)
CPT/HCPCS: 83013

== ENCOUNTER → 2020-04-05 13:50 | Outpatient (CLI) | payer OTHER, SELFPAY ==
[2020-04-05 16:02] LABS: Coronavirus 19 IgG Antibody Positive (Negative); Coronavirus 19 IgM Antibody Negative (Negative)
== END ==
PROVIDERS: Visit Provider Nurse Practitioner Family
DX: Z03.818 Encounter for observation for suspected exposure to other biological agents ruled out (principal); G47.33 Obstructive sleep apnea (adult) (pediatric); R40.0 Somnolence
CPT/HCPCS: 36415; 86328

== ENCOUNTER → 2020-04-06 19:59 | Outpatient (CLI) | payer OTHER, SELFPAY | PROVIDERS: PCP Internal Medicine Adolescent Medicine; Visit Provider Nurse Practitioner Family | DX: G47.33 Obstructive sleep apnea (adult) (pediatric) (principal); G47.10 Hypersomnia, unspecified | CPT/HCPCS: 95810 ==

== ENCOUNTER → 2020-04-14 09:53 | Outpatient (POV) | payer OTHER, SELFPAY | PROVIDERS: Visit Provider Audiologist | DX: Z00.00 Encounter for general adult medical examination without abnormal findings (principal) ==

== ENCOUNTER → 2020-05-02 09:51 | Outpatient (CLI) | payer OTHER, SELFPAY ==
--- NOTE | 2020-05-02 09:56 | XR_ITS ---
PROCEDURE: XR KNEE LT 4V CLINICAL INDICATION: LT KNEE PAIN COMPARISON: CR [id number] KNEE-3 VIEWS-RT from 12/08/2013 FINDINGS: No fracture or dislocation. No lytic or blastic change. There is normal mineralization. There is minimal osteoarthritic change with slight decrease in the joint space and minimal spurring at the patellofemoral joint. There are 2 lucent areas over the posterior patellar surface which could represent subarticular cystic changes the largest at 3 mm. Other findings:None. IMPRESSION: Minimal osteoarthritic changes with small lucencies of the patella. Possibly due to sub chondral cystic changes. MRI may confirm. Dictated by: Ranulfo Rashid MD 05/02/2020 17:36 Ranulfo Rashid MD in [facility] 05/02/2020 17:36
== END ==
PROVIDERS: PCP Nurse Practitioner Family; Visit Provider Nurse Practitioner Family
DX: M25.562 Pain in left knee (principal); G89.29 Other chronic pain
CPT/HCPCS: 73564

== ENCOUNTER → 2020-05-05 09:30 | Outpatient (POV) | payer OTHER, SELFPAY | PROVIDERS: Visit Provider Audiologist | DX: Z00.00 Encounter for general adult medical examination without abnormal findings (principal) ==

== ENCOUNTER 2020-05-10 13:36 | Outpatient (RCR) | payer OTHER, SELFPAY ==
--- NOTE | 2020-05-10 14:59 | HMH.PTOPEV ---
PT Outpatient Evaluation Rehab PT Outpatient Evaluation Start: 05/10/20 14:46 Freq: Status: Active Protocol: Document 05/10/20 14:48 [email or web address] (Rec: 05/10/20 14:58 DEONNASCOTT [id number]) Electronically Signed By Tigre Martel, PT 05/10/20 14:48 Outpatient Therapy Subjective History Subjective History This is the initial Physical Therapy evaluation for aJclyn Gamez. Pt is a 45 y/o female referred to PT for c/o L knee pain. Pt reports she has had knee pain for ~ 10 years PT reports insidious onset of knee pain ten years ago. Pt reports she was descending stairs about 2 weeks ago and felt like something broke in her knee and it locked up . Pt reports she has intermittant pain but is unable to find anything that makes it quit hurting . Pt reports she put Voltarin gel on her knee and it made it hurt worse Chief Complaint Pain,Catches/Locks,Gives out/ Unstable Symptom Type Ache,Sharp Symptoms Relieved By Nothing Symptoms Aggravated By Physical Activity Prior Functional Limitations None Current Functional Limitations Squatting,Recreation Activity, Walking,Stairs Symptom Description Intermittent Level of pain today (0-10) 0 Pain scale - at its best (0-10) 0 Pain scale - at its worst (0-10) 8 Hip/Knee Eval Gait Observation General Gait Pattern Observation No Deviations/Normal Assistive Device Assistive Devices None / NA Palpation Tenderness left Knee Palpation Finding Tenderness Knee Palpation Overall Comment c/o TTP at superior patellar pole MMT right Hip Strength Reason Not Measured WFL Knee Extension Strength Grade 5 Normal Knee Flexion Strength Grade 5 Normal left Hip Strength Reason Not Measured WFL Knee Extension Strength Grade 4 Good Knee Flexion Strength Grade 4 Good ROM bilateral Hip ROM Reason Not Measured Within Functional Limits Knee ROM Reason Not Measured Within Functional Limits Special Tests Knee Apprehension Test Negative Left Knee Apley Compression Test Negative Left Knee Anterior Drawer Test Negative Left Knee Medial-Lateral Grind Test Negative Left Knee Anterior Fatmata
== END 2020-05-10 13:40 | disposition home or self-care (01) ==
LOC: PT 13:36
PROVIDERS: PCP Nurse Practitioner Family; Visit Provider Internal Medicine Adolescent Medicine
DX: M25.562 Pain in left knee (principal)
CPT/HCPCS: 97163

== ENCOUNTER → 2020-05-16 16:54 | Outpatient (CLI) | payer OTHER, SELFPAY ==
--- NOTE | 2020-05-16 16:54 | MM_ITS ---
PROCEDURE: MM DIG SCREENING MAMM BI W/CAD Digital Breast Tomosynthesis Included CLINICAL INDICATION: screening xmg There is a history of breast cancer in the patient's mother diagnosed in her 30s. COMPARISON: [facility] SCBI MM Dig screening mamm BI w/CAD from 10/22/2017 [facility] SC[facility] MM Dig screening mamm BI w/CAD from 10/27/2018 [facility] DXBI MM Dig mamm BI DX w/CAD from 11/17/2018 TECHNIQUE: Standard CC and MLO images and 3D Tomosynthesis was obtained. R2 CAD reviewed. FINDINGS: Diffuse scattered fibroglandular densities are seen throughout both breast and the findings are bilateral and symmetrical. Benign-appearing nodular densities deep within both the right and left breast best seen on the CC view and only definitely seen on the marci images. Both have benign characteristics however since this is the 1st exam with marci images available recommend the patient return for six-month follow-up mammogram of each breast to evaluate for interval stability. There are no suspicious microcalcifications. IMPRESSION: Fibrofatty parenchyma with benign-appearing nodular densities deep within each breast BI-RAD Category: 3 Probably Benign Finding Short Term Follow-up FOLLOW-UP: 6M 6Month Follow-up (A letter has been sent to the patient regarding results of the study.) Dictated by: Dr. Antonio Villeda MD 05/19/2020 09:11 Dr. Antonio Villeda MD in [facility] 05/19/2020 09:11
== END ==
PROVIDERS: PCP Internal Medicine Adolescent Medicine; Visit Provider Nurse Practitioner Obstetrics & Gynecology
DX: Z12.31 Encounter for screening mammogram for malignant neoplasm of breast (principal)
CPT/HCPCS: 77063; 77067

== ENCOUNTER → 2020-06-06 12:44 | Outpatient (CLI) | payer OTHER, SELFPAY ==
--- NOTE | 2020-06-06 12:44 | CA_ITS ---
APPROVED REPORT EXAM: Comprehensive 2D, Doppler, and color-flow Echocardiogram Pharmacy Billing Adjudicator: Tamra Chung CRT Ht: 5 ft 5 in Wt: 262lbs BSA: 2.22 BP: 113/73 mmHg Indications: COPD, Shortness of Breath, Peripheral Edema, Hypertension/HDD, SMOKER 2D Dimensions LVOT 2.10 cm (M/F) 1.5-2.5 M-Mode Dimensions RVDd 3.22 cm (0.9-2.6) LA Diam 3.80 cm (1.9-4.0) LVDd 4.30 cm (3.5-5.7) Ao Diam 3.52 cm (2.0-3.7) LVDs 3.19 cm (3.5-5.7) IVSd 1.24 cm (0.6-1.1) PWd 0.77 cm (0.6-1.1) EF (Teich) 51.10% FS 25.80% EDV (Teich) 83.10 mL ESV (Teich) 40.60 mL LV Diastology MED E' 7.90 (< 7 cm/sec) LAT E' 13.10 (<10 cm/sec) Aortic Valve AO Peak GR. 8.20 mmHg Pulmonary Valve PV Peak Velocity 83.00 (50-150 cm/s) Tricuspid Valve TR P. Velocity 216.00 cm/s RAP Estimate 10.00 mmHg RVSP 28.60 mmHg Left Ventricle Left atrium is normal size, left ventricle is normal size, left ventricle wall thickness is upper limit of the normal, there is preserved left ventricular systolic function, visually estimated ejection fraction 55% with no regional wall motion abnormality, diastolic parameters are within normal range. Right Ventricle Right atrium and right ventricle are relatively normal size and function. Aortic Valve Aortic valve is minimally thickened and fibrosed, there is no aortic stenosis or aortic insufficiency. Mitral Valve Mitral valve is grossly normal, there is mild mitral regurgitation. Tricuspid Valve Tricuspid valve leaflets are minimally thickened, there is no tricuspid stenosis, there is mild tricuspid regurgitation, tricuspid regurgitation jet velocity is inadequate for calculation of the right ventricular systolic pressure. Pulmonic Valve Pulmonic valve is poorly visualized. Great Vessels Aortic root is normal size. Pericardium No significant pericardial effusion noted. Conclusion 1. Normal ventricular size, preserved left ventricular systolic function, visually estimated ejection fraction 55% with no regional wall motion abnormality, diastolic parameters are within normal range. 2. Mild mitral and tricuspid regurgitation. 3. No significant pericardial effusion noted. Electronically signed by : Deon Matute, 06/08/2020 06:08:19
[2020-06-06 14:44] LABS: Basophils # 0.1 K/mm3 (0-0.2); Basophils % 0.5 % (0.1-2.0); Eosinophils # 0.3 K/mm3 (0.0-0.4); Eosinophils % 2.6 % (0.1-12.0); Hematocrit 45.7 % (37.0-47.0); Hemoglobin 15.1 g/dL (12.2-16.2); Lymphocytes # 2.6 K/mm3 (0.7-4.5); Lymphocytes % 24.3 % (10-50); Mean Corpuscular Hemoglobin 29.8 pg (27.0-31.2); Mean Corpuscular Volume 90.4 fl (81-99); Mean Platelet Volume 8.1 fl (7.4-10.4); Monocytes # 0.7 K/mm3 (0.1-1.0); Monocytes % 6.2 % (1.7-9.3); Neutrophils % 66.4 % (37.0-80.0); Platelet Count 392 K/mm3 (142-424); Red Blood Count 5.06 M/mm3 (4.20-5.40); Red Cell Distribution Width 13.9 % (11.5-17.5); White Blood Count 10.6 K/mm3 (4.8-10.8)
[2020-06-06 15:23] LABS: Chloride 103 mmol/L (98-107); Potassium 4.4 mmoL/L (3.5-5.1); Sodium 138 mmol/L (136-145)
[2020-06-06 15:25] LABS: Alanine Aminotransferase 57 U/L (12-78); Aspartate Amino Transferase 43 U/L (14-36); Blood Urea Nitrogen 10 mg/dl (7-17); Estimated Glomerular Filt Rate 91 ml/min (>60); GFR (African American) 110 ML/MIN (>60)
[2020-06-06 15:26] LABS: Albumin/Globulin Ratio 1.3 (1.1-1.8); Alkaline Phosphatase 98 U/L (38-126); Anion Gap 10.4 mEq/L (5-15); Bilirubin,Total 0.4 mg/dl (0.2-1.3); Carbon Dioxide 29 mmol/L (22.0-30.0); Globulin 3.1 g/dL (1.3-3.2); Glucose 84 mg/dl (74-100); Total Protein,Serum 7.1 g/dl (6.3-8.2)
[2020-06-06 15:40] LABS: 25-OH Vitamin D, Total 31.4 ng/mL (30-100)
== END ==
PROVIDERS: PCP Internal Medicine Adolescent Medicine; Visit Provider Nurse Practitioner Family
DX: I50.33 Acute on chronic diastolic (congestive) heart failure (principal); J44.9 Chronic obstructive pulmonary disease, unspecified; R94.30 Abnormal result of cardiovascular function study, unspecified; K21.9 Gastro-esophageal reflux disease without esophagitis; R60.0 Localized edema; Z72.0 Tobacco use
CPT/HCPCS: 36415; 80053; 82306; 85025; 93306

== ENCOUNTER → 2020-06-10 08:16 | Outpatient (CLI) | payer OTHER, SELFPAY ==
--- NOTE | 2020-06-10 08:16 | CT_ITS ---
PROCEDURE: CT SINUS WO CON CLINICAL HISTORY: sinus congestion chronic maxillary sinusitis COMPARISON: CT HEADWO CT head/brain wo con from 01/15/2018 TECHNIQUE: Axial images obtained with sagittal and coronal reformats. All CT scans at the facility use one or more dose reduction, viz: automated exposure control, ma/kV adjustment per patient size (including targeted exams where dose is matched to indication, i.e. head), or iterative reconstruction technique. FINDINGS: The frontal sinuses are unremarkable. There is mild mucosal thickening of the left mid ethmoid air cell. The maxillary sinuses and sphenoid sinuses are unremarkable. No sinus air-fluid level or mass. There is chronic sclerosis of the mastoid sinuses on both sides with mild mastoid opacification. Status post prior bilateral mastoidectomy. There is opacification of the left middle ear and mild opacification of the right middle ear. The right middle ear ossicles are not identified and could be due to prior surgery or erosion from chronic infection. There is epitympanic opacification on both sides. No nasal septal deviation. The TMJs are unremarkable. Unremarkable appearing orbits. IMPRESSION: 1. Only minimal opacification of the left ethmoid air cells. No evidence of acute paranasal sinusitis. 2. Chronic bilateral mastoid sinus disease with postsurgical changes. The right middle ear ossicles are not demonstrated and could be due to prior surgery or erosion from inflammatory/infectious changes. Please correlate with patient's surgical history Dictated by: Ranulfo Rashid MD 06/11/2020 10:57 Ranulfo Rashid MD in [facility] 06/11/2020 10:57
== END ==
PROVIDERS: PCP Internal Medicine Adolescent Medicine; Visit Provider Otolaryngology
DX: J32.0 Chronic maxillary sinusitis (principal); J34.2 Deviated nasal septum; J34.3 Hypertrophy of nasal turbinates; J44.9 Chronic obstructive pulmonary disease, unspecified; G47.33 Obstructive sleep apnea (adult) (pediatric)
CPT/HCPCS: 70486

== ENCOUNTER → 2020-06-18 12:06 | Outpatient (CLI) | payer OTHER, SELFPAY ==
[2020-06-18 15:59] LABS: Coronavirus 19 IgG Antibody Negative (Negative); Coronavirus 19 IgM Antibody Negative (Negative)
== END ==
PROVIDERS: Visit Provider Internal Medicine Gastroenterology
DX: Z01.818 Encounter for other preprocedural examination (principal); Z13.810 Encounter for screening for upper gastrointestinal disorder
CPT/HCPCS: 36415; 86328

== ENCOUNTER 2020-06-20 11:19 | Day surgery (SDC) | payer OTHER, SELFPAY ==
[2020-06-17 13:44] VITALS: BMI 43.2
[2020-06-20 11:40] VITALS: BP 110/50; PULSE 63; RESP 18; TEMP 37.1; O2SAT 96
[2020-06-20 13:05] VITALS: O2SAT 97
--- NOTE | 2020-06-20 13:18 | P.PN_ITS ---
[facility] Anesthesia Checklist - Patient Identification Patient Identification: Arm Band, Verbal (Name & ) - Structural Data Admitted From: Home Planned Operative Procedure/s: EGD Consent for Planned Operative Procedure(s) Verified: Yes Verified Documents: Surgical Consent, History and Physical - NPO Status Verified Time NPO: 00:00 - Chart Verification Results Verified: CBC, BMP - Additional verifications Patient : No Anesthesia Reactions: No - Airway Assessment C-Spine Mobility Assessed: Yes TMJ Mobility Assessed: Yes Dentition: Edentulous - Neurological Assessment Level of Consciousness: Awake, Alert, Appropriate, Follows Commands Hx Seizures: No Numbness or tingling in extremities: No - Anesthesia Plan Anesthesia Risk discussed: Yes Anesthesia Plan: Verified ASA Class: III Anesthesia Type: MAC [facility] History I have reviewed the patient's past medical history: Yes Medical History: Reports:: Congestive Heart Failure, Chronic Obstructive Pulmonary Disease (COPD), Gastroesophageal Reflux Disease(GERD), Hypertension Denies:: Cancer, Diabetes Mellitus Type 1, Diabetes Mellitus Type 2, Internal Pacemaker, Lung Disease, MRSA, Seizures *Have you ever received a pneumonia vaccine?: No *Have you received a flu vaccine this season?: No Other Medical History: Reports: Other Comment:: ALEXIA, morbid obesity, Anesthesia experience/problems:: None Laterality Cases: Right: Carpal Tunnel Release, Bilateral: Myringotomy (Ear Tubes), Tonsillectomy, Other Other Surgeries: Yes: Cardiac Catheterization, Colonoscopy, Dilation and Curettage, EGD, Hysterectomy-Partial, Tubal Ligation, Other. No: Pacemaker Amputation: No Fractures: No - *Social History Last grade of school completed: High school graduate Smoking Status: Current every day smoker Tobacco Type: cigarettes # Packs/Day (cigarettes): 1 Alcohol Intake: never Alcohol Intake Frequency:: holidays/special occasions only Substance Use Type: denies use *Occupational Status:: unemployed Housing: house Household Members: spouse, family, children *Travel in the last 8 weeks: None Family Hx:: Non-contributory
--- NOTE | 2020-06-20 13:28 | P.PCN_ITS ---
[facility] Procedure Note Procedure Note:: Upper Endoscopy Procedure Report: Esophagogastroduodenoscopy with cold biopsies Endoscopost: Anuel Mariano II, MD Referring Physician: Chito Freeman M.D./Corky Callahan MD Date of Procedure: June 20, 2020 Equipment: Olympus GIF 180 standard upper endoscope Sedation: MAC sedation Indications: Mrs. Gamez is a 45-year-old female with right upper quadrant/right flank abdominal pain with constant nausea daily. She has bloating, belching and early satiety. She does get some globus sensation and heartburn. She also reports irregular bowel function with constipation and diarrhea. She did have diagnostic panendoscopy (Dr. Corky Callahan) in December 2019. The upper endoscopy appeared to be relatively normal from report and her colonoscopy showed a few hyperplastic appearing polyps and possibly a couple of adenomas that were removed. The patient reports no melena or rectal bleeding. She does not feel stress is playing a role. She does have a positive H. pylori breath test. She has had some resistance to treatment. Her HIDA scan showed a 58% ejection fraction with a cholesterol gallbladder polyp on ultrasound. Procedure: Prior to the procedure, a history and physical exam was performed, and patient's medications and allergies were reviewed. The risks, benefits and alternatives of the sedation and procedure were discussed with the patient. All questions were answered and informed consent was obtained. The patient was brought to the procedure room. Patient identification and proposed procedure were verified by the physician and the nurse. The patient was placed in a left lateral decubitus position and the scope was passed under direct vision. Throughout the procedure, the patient's blood pressure, pulse, and oxygen saturations were monitored continuously. The upper GI endoscopy was accomplished without difficulty. The patient tolerated the procedure well. Findings: The scope was passed directly into the upper esophagus and advanced to the third portion of the duodenum. The post bulbar duodenum and duodenal bulb were normal with normal mucosa and conniventes. The scope was withdrawn through a normal duodenal bulb and pylorus into the stomach. There was marked bile reflux with linear reactive gastropathy of the antrum and body of the stomach. The remainder of the antrum, body and fundus of the stomach were grossly normal. There was some mild chronic gastritis. Upon retroflexion there was no hiatal hernia. 2 biopsies were taken in the antrum and along the lesser curvature for histology to rule out gastritis and/or H pylori. Biopsies were taken both for culture (for antibiotic sensitivities) as well as histology. The scope was then withdrawn into the esophagus. There was a serrated Z-line. There was evidence of moderate esophageal dysmotility. There was no evidence of reflux esophagitis or Rachel's. Cold biopsies were taken from the Z-line/gastroesophageal junction. The remainder of the esophageal mucosa was normal. Impression: 1. Nonerosive GERD with moderate esophageal dysmotility 2. Bile reflux with linear reactive gastropathy and mild chronic gastritis Plan: I will follow-up the biopsies. 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 We will discuss additional dietary measures and treatment options.
[2020-06-20 13:29] VITALS: BP 113/74; PULSE 73; RESP 12; TEMP 36.6; O2SAT 92
[2020-06-20 13:39] VITALS: BP 109/77; PULSE 68; RESP 16; O2SAT 98
[2020-06-20 13:49] VITALS: BP 116/72; PULSE 67; RESP 16; O2SAT 98
[2020-06-20 13:59] VITALS: BP 111/76; PULSE 61; RESP 16; TEMP 36.6; O2SAT 99
== END 2020-06-20 14:02 | disposition home or self-care (01) ==
LOC: OUTP 11:19
PROVIDERS: PCP Internal Medicine Adolescent Medicine; Visit Provider Internal Medicine Gastroenterology
PROC: 0DJ08ZZ Inspection of Upper Intestinal Tract, Via Natural or Artificial Opening Endoscopic (ICD-10-PCS; CPT 43235; principal; 2020-06-20 12:30)
DX: K21.9 Gastro-esophageal reflux disease without esophagitis (principal); K22.4 Dyskinesia of esophagus; K31.9 Disease of stomach and duodenum, unspecified; K29.50 Unspecified chronic gastritis without bleeding; J44.9 Chronic obstructive pulmonary disease, unspecified; I11.0 Hypertensive heart disease with heart failure; I50.9 Heart failure, unspecified; G47.33 Obstructive sleep apnea (adult) (pediatric); E66.9 Obesity, unspecified; Z68.41 Body mass index [BMI] 40.0-44.9, adult; Z72.0 Tobacco use; Z79.899 Other long term (current) drug therapy
CPT/HCPCS: 43239

== ENCOUNTER → 2020-06-22 14:46 | Outpatient (CLI) | payer OTHER, SELFPAY ==
--- NOTE | 2020-06-22 14:46 | MR_ITS ---
PROCEDURE: MR KNEE LT WO CON CLINICAL INDICATION: evaluate for a meniscus tear CHRONIC LEFT ANTERIOR KNEE PAIN WORSENING OVER THE LAST 2-3 MONTHS. NO INJURY OR TRAUMA. PRIOR XRAY 05-02-20. NO SURGERY COMPARISON: CR XR KNEE LT 4V from 05/02/2020 TECHNIQUE: Routine multiplanar multi echo sequences are performed without gadolinium enhancement. FINDINGS: Cruciate ligaments, medial collateral ligament, and quadriceps tendon are intact. Patellar tendon has an undulated appearance but may be related to the patient's hyper extended positioning. There is tear of the fibular collateral ligament. There is increased T2 signal involving the distal portion the fibular collateral ligament with discontinuity of the ligament with associated increased T2 signal of the adjacent soft tissue. No meniscal tear. There is thinning of the patellar cartilage with some increased T2 signal in the patella superiorly with a cystic area in the patella superiorly and posteriorly measuring 6 mm. There is mild lateral patellar subluxation. The patellofemoral ligaments appear intact. There is some increased soft tissue T2 signal in the pretibial area at the tibial tuberosity region. There are mild osteoarthritic changes. There is some increased T2 signal involving the lateral femoral condyle. IMPRESSION: 1. Tear of the fibular collateral ligament with adjacent soft tissue edema. 2. Mild osteoarthritic change. There is decreased T1 and increased T2 signal involving the medial femoral condyle which could be due to an area of osteochondrosis. 3. Chondromalacia patella versus osteoarthritic change of the patella with subchondral cystic area in the superior patella Dictated by: Ranulfo Rashid MD 06/23/2020 10:13 Ranulfo Rashid MD in [place] 06/23/2020 10:13
== END ==
PROVIDERS: PCP Internal Medicine Adolescent Medicine; Visit Provider Orthopaedic Surgery
DX: M25.562 Pain in left knee (principal); G89.29 Other chronic pain
CPT/HCPCS: 73721

== ENCOUNTER → 2020-11-17 08:44 | Outpatient (CLI) | payer OTHER, SELFPAY ==
[2020-11-17 09:42] LABS: Basophils # 0.1 K/mm3 (0-0.2); Basophils % 0.6 % (0.1-2.0); Eosinophils # 0.3 K/mm3 (0.0-0.4); Eosinophils % 3.4 % (0.1-12.0); Hematocrit 42.4 % (37.0-47.0); Hemoglobin 13.8 g/dL (12.2-16.2); Lymphocytes # 2.1 K/mm3 (0.7-4.5); Lymphocytes % 24.8 % (10-50); Mean Corpuscular HGB Conc 32.5 g/dL (31.8-35.4); Mean Corpuscular Volume 89.2 fl (81-99); Mean Platelet Volume 8.1 fl (7.4-10.4); Monocytes # 0.5 K/mm3 (0.1-1.0); Monocytes % 5.3 % (1.7-9.3); Neutrophils # 5.7 K/mm3 (1.8-7.8); Neutrophils % 65.9 % (37.0-80.0); Platelet Count 320 K/mm3 (142-424); Red Blood Count 4.75 M/mm3 (4.20-5.40); White Blood Count 8.7 K/mm3 (4.8-10.8)
[2020-11-17 09:53] LABS: Hemoglobin A1C 5.4 % (4.0-6.0)
[2020-11-17 09:57] LABS: Chloride 103 mmol/L (98-107); Potassium 4.9 mmoL/L (3.5-5.1); Sodium 139 mmol/L (136-145)
[2020-11-17 10:00] LABS: Alanine Aminotransferase 53 U/L (12-78); Albumin Level 4.2 g/dl (3.5-5.0); Albumin/Globulin Ratio 1.4 (1.1-1.8); Alkaline Phosphatase 111 U/L (38-126); Anion Gap 13.9 mEq/L (5-15); Aspartate Amino Transferase 39 U/L (14-36); Bilirubin,Total 0.6 mg/dl (0.2-1.3); Blood Urea Nitrogen 11 mg/dl (7-17); Calcium 9.1 mg/dl (8.4-10.2); Carbon Dioxide 27 mmol/L (22.0-30.0); Chol/HDL Ratio 4.8 (1-3.5); Cholesterol 182 mg/dl (140-200); Estimated Glomerular Filt Rate 91 ml/min (>60); GFR (African American) 110 ML/MIN (>60); Glucose 104 mg/dl (74-100); HDL Cholesterol 38 mg/dl (40-60); Total Protein,Serum 7.2 g/dl (6.3-8.2); Triglycerides 68 mg/dl (30-150); VLDL Cholesterol 14 mg/dL (0-40)
[2020-11-17 10:12] LABS: Direct LDL Cholesterol 118.68 mg/dL (100-129)
== END ==
PROVIDERS: Visit Provider Internal Medicine Adolescent Medicine
DX: I50.33 Acute on chronic diastolic (congestive) heart failure (principal); Z79.899 Other long term (current) drug therapy
CPT/HCPCS: 36415; 80053; 80061; 83036; 85025

== ENCOUNTER → 2021-02-23 17:11 | Outpatient (CLI) | payer OTHER, SELFPAY ==
[2021-02-23 17:54] LABS: Basophils # 0.1 K/mm3 (0-0.2); Eosinophils # 0.3 K/mm3 (0.0-0.4); Eosinophils % 2.5 % (0.1-12.0); Hematocrit 42.4 % (37.0-47.0); Hemoglobin 14.5 g/dL (12.2-16.2); Lymphocytes # 2.6 K/mm3 (0.7-4.5); Lymphocytes % 22.2 % (10-50); Mean Corpuscular HGB Conc 34.1 g/dL (31.8-35.4); Mean Corpuscular Hemoglobin 29.5 pg (27.0-31.2); Mean Corpuscular Volume 86.5 fl (81-99); Mean Platelet Volume 7.7 fl (7.4-10.4); Monocytes # 0.7 K/mm3 (0.1-1.0); Monocytes % 6.3 % (1.7-9.3); Platelet Count 324 K/mm3 (142-424); Red Cell Distribution Width 14.3 % (11.5-17.5); White Blood Count 11.7 K/mm3 (4.8-10.8)
[2021-02-23 19:50] LABS: Chloride 106 mmol/L (98-107); Potassium 4.4 mmoL/L (3.5-5.1); Sodium 139 mmol/L (136-145)
[2021-02-23 19:53] LABS: Alanine Aminotransferase 52 U/L (12-78); Albumin/Globulin Ratio 1.4 (1.1-1.8); Alkaline Phosphatase 110 U/L (38-126); Anion Gap 10.4 mEq/L (5-15); Aspartate Amino Transferase 40 U/L (14-36); Bilirubin,Total 0.3 mg/dl (0.2-1.3); Blood Urea Nitrogen 10 mg/dl (7-17); Calcium 8.5 mg/dl (8.4-10.2); Carbon Dioxide 27 mmol/L (22.0-30.0); Estimated Glomerular Filt Rate 108 ml/min (>60); GFR (African American) 131 ML/MIN (>60); Globulin 2.9 g/dL (1.3-3.2); Glucose 95 mg/dl (74-100); Total Protein,Serum 6.9 g/dl (6.3-8.2)
[2021-02-23 19:54] LABS: Magnesium 2.2 mg/dl (1.6-2.3)
[2021-02-23 20:09] LABS: Free Thyroxine Index 2.6 ug/dL (5.93-13.13); T4 (Thyroxine) 7.9 ug/dl (5.53-11.0); Triiodothryronine (T3) Uptake 33 % (23.5-40.5)
[2021-02-23 20:12] LABS: 25-OH Vitamin D, Total 32.5 ng/mL (30-100)
[2021-02-23 20:23] LABS: Thyroid Stimulating Hormone 0.75 uIU/mL (0.465-4.68)
[2021-02-23 20:28] LABS: Ferritin 60.2 ng/ml (6.24-137)
[2021-02-23 21:45] LABS: Vitamin B12 338 pg/mL (239-931)
== END ==
PROVIDERS: Visit Provider Internal Medicine Adolescent Medicine
DX: M79.2 Neuralgia and neuritis, unspecified (principal); G57.93 Unspecified mononeuropathy of bilateral lower limbs; M79.605 Pain in left leg; E66.9 Obesity, unspecified; Z68.41 Body mass index [BMI] 40.0-44.9, adult
CPT/HCPCS: 36415; 80053; 82306; 82607; 82728; 83735; 84436; 84443; 84479; 85025

== ENCOUNTER 2021-05-08 20:23 | Emergency (ER) | payer OTHER, SELFPAY ==
[2021-05-08 20:24] VITALS: BP 157/94; PULSE 96; RESP 18; TEMP 36.8; O2SAT 100; BMI 43.2
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
--- NOTE | 2021-05-08 22:50 | PC.NURSE ---
c-spine ct quyen, states ok to remove c-collar
[2021-05-08 23:30] VITALS: BP 145/80; PULSE 80; RESP 19; TEMP 37; O2SAT 98
== END 2021-05-08 23:35 | disposition home or self-care (01) ==
PROVIDERS: Emergency Provider Emergency Medicine; PCP Internal Medicine Adolescent Medicine
DX: S06.0X0A Concussion without loss of consciousness, initial encounter (principal); S16.1XXA Strain of muscle, fascia and tendon at neck level, initial encounter; V43.02XA Car driver injured in collision with other type car in nontraffic accident, initial encounter; Y92.414 Local residential or business street as the place of occurrence of the external cause
CPT/HCPCS: 70450; 71045; 72125; 73030; 99282

== ENCOUNTER → 2021-06-20 10:57 | Outpatient (CLI) | payer OTHER, SELFPAY ==
--- NOTE | 2021-06-20 11:00 | XR_ITS ---
PROCEDURE: XR KNEE LT 4V CLINICAL INDICATION: left knee pain COMPARISON: CR KNEE3R KNEE-3 VIEWS-RT from 12/08/2013 CR XR KNEE LT 4V from 05/02/2020 MR MR KNEE LT WO CON from 06/22/2020 FINDINGS: No fracture or dislocation. No lytic or blastic change. There is normal mineralization. There are mild osteoarthritic changes involving all 3 compartments. Lucency is noted along the posterior and upper and mid aspect of the patella which may be due to subchondral cystic changes Other findings:None. IMPRESSION: Osteoarthritis slightly worse at the patellofemoral joint with subchondral cystic changes of the posteriorly Dictated by: Ranulfo Rashid MD 06/21/2021 08:01 Ranulfo Rashid MD in [place] 06/21/2021 08:01
== END ==
PROVIDERS: PCP Internal Medicine Adolescent Medicine; Visit Provider Orthopaedic Surgery
DX: M25.562 Pain in left knee (principal); G89.29 Other chronic pain
CPT/HCPCS: 73564

== ENCOUNTER → 2022-08-09 08:59 | Outpatient (CLI) | payer OTHER, SELFPAY ==
--- NOTE | 2022-08-09 09:04 | XR_ITS ---
FINAL REPORT CLINICAL HISTORY: SHORT OF BREATH COMPARISON: 05/09/2021 FINDINGS: Two views of the chest show lungs to be clear. Pulmonary vascularity is normal. Heart and mediastinum are unremarkable. No pleural effusion is present. IMPRESSION: No active disease. No change from prior. Reviewed, Interpreted and Dictated by Val Horton MD Transcribed by Kimberly Mcguire Authenticated and [facility]
== END ==
PROVIDERS: PCP Internal Medicine Adolescent Medicine; Visit Provider Nurse Practitioner Family
DX: R06.02 Shortness of breath (principal); R05.9 Cough, unspecified
CPT/HCPCS: 71046

== ENCOUNTER 2022-08-16 16:03 | Emergency (ER) | payer OTHER, SELFPAY ==
[2022-08-16 16:21] VITALS: BP 137/68; PULSE 66; O2SAT 96
[2022-08-16 16:30] VITALS: BP 137/68; PULSE 66; RESP 19; TEMP 36.8; O2SAT 97; BMI 45.2
--- NOTE | 2022-08-16 16:30 | PC.NURSE ---
pt placed in 1:1 observation
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
--- NOTE | 2022-08-16 16:51 | PC.NURSE ---
pt to radiology
[2022-08-16 16:55] LABS: Basophils # 0.1 K/mm3 (0-0.2); Basophils % 0.9 % (0.1-2.0); Eosinophils # 0.2 K/mm3 (0.0-0.4); Eosinophils % 1.4 % (0.1-12.0); Hematocrit 40.8 % (37.0-47.0); Hemoglobin 13.3 g/dL (12.2-16.2); Lymphocytes # 1.9 K/mm3 (0.7-4.5); Mean Corpuscular HGB Conc 32.7 g/dL (31.8-35.4); Mean Corpuscular Hemoglobin 28.8 pg (27.0-31.2); Mean Corpuscular Volume 88.2 fl (81-99); Mean Platelet Volume 7.9 fl (7.4-10.4); Monocytes # 0.5 K/mm3 (0.1-1.0); Monocytes % 4.1 % (1.7-9.3); Neutrophils # 8.4 K/mm3 (1.8-7.8); Neutrophils % 76.7 % (37.0-80.0); Platelet Count 454 K/mm3 (142-424); Red Blood Count 4.62 M/mm3 (4.20-5.40); Red Cell Distribution Width 13.8 % (11.5-17.5)
--- NOTE | 2022-08-16 16:57 | PC.NURSE ---
pt returned from radiology
[2022-08-16 17:02] LABS: Alanine Aminotransferase 55 U/L (12-78); Albumin Level 4.3 g/dl (3.5-5.0); Albumin/Globulin Ratio 1.3 (1.1-1.8); Alkaline Phosphatase 113 U/L (38-126); Anion Gap 11.1 mEq/L (5-15); Aspartate Amino Transferase 47 U/L (14-36); Bilirubin,Total 0.5 mg/dl (0.2-1.3); Blood Urea Nitrogen 9 mg/dl (7-17); Calcium 8.6 mg/dl (8.4-10.2); Carbon Dioxide 26 mmol/L (22.0-30.0); Chloride 106 mmol/L (98-107); Creatinine Clearance Estimated 79 mL/min (50-200); Estimated Glomerular Filt Rate 77 ml/min (>60); GFR (African American) 93 ML/MIN (>60); Globulin 3.4 g/dL (1.3-3.2); Glucose 126 mg/dl (74-100); Potassium 4.1 mmoL/L (3.5-5.1); Sodium 139 mmol/L (136-145); Total Protein,Serum 7.7 g/dl (6.3-8.2)
[2022-08-16 17:03] VITALS: BP 118/64; PULSE 67; O2SAT 97
[2022-08-16 17:08] LABS: Acetaminophen < 10 ug/ml (10-30); Ethyl Alcohol < 10 mg/dl (0-10); Salicylate < 1.0 mg/dL (2.0-20.0)
--- NOTE | 2022-08-16 17:20 | ECG_ITS ---
APPROVED REPORT Exam: Resting ECG HR:55 bpm ECG Measurements Heart Rate 55 AXES IL 164 P 25 QRSd 90 QRS 44 QT 426 T 41 QTc 414 Conclusion SINUS BRADYCARDIA WITH SINUS ARRHYTHMIA LOW QRS VOLTAGE IN PRECORDIAL LEADS [QRS DEFLECTION < 1.0 mV IN CHEST LEADS] BORDERLINE ECG UNCONFIRMED REPORT Electronically signed by : Chito Freeman MD 08/17/2022 10:06:26
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
[2022-08-16 17:39] LABS: Coronavirus 19, PCR Not Detected (NotDetected); Influenza A, PCR Not Detected (NotDetected); Influenza B, PCR Not Detected (NotDetected)
[2022-08-16 17:47] LABS: Microscopic, Urine URINE MICROSCOPIC (MICROSCOPIC)
[2022-08-16 17:50] LABS: Appearance,Urine CLEAR (Clear); Bilirubin,Urine Negative (Negative); Blood, Urine Negative (Negative); Color,Urine YELLOW (Yellow); Glucose,Urine (UA) Negative (Negative); Ketones,Urine Negative (Negative); Leukocyte Esterase,Urine Negative (Negative); Nitrate,Urine Negative (Negative); Protein,Urine Negative (Negative); Specific Gravity, Urine <= 1.005 (1.005-1.030); Urobilinogen,Urine 0.2 EU/dl (0.2)
[2022-08-16 18:07] LABS: Benzodiazepines Screen,Urine Negative ng/ml (<200)
[2022-08-16 18:08] LABS: Amphetamine/Metha Screen,Urine Negative ng/ml (<1000); Barbiturates Screen,Urine Negative ng/ml (<200)
[2022-08-16 18:09] LABS: Cannabinoid Screen,Urine Negative ng/ml (<50)
[2022-08-16 18:10] LABS: Cocaine Screen,Urine Negative ng/ml (<300); Methadone Screen,Urine Negative ng/ml (<300)
[2022-08-16 18:11] LABS: Opiate Screen,Urine Negative ng/ml (<300); Phencyclidine Screen,Urine Negative ng/ml (<25)
[2022-08-16 18:13] LABS: Bacteria,Urine Trace /lpf
--- NOTE | 2022-08-16 18:52 | PC.NURSE ---
petition faxed to [facility]
--- NOTE | 2022-08-16 18:55 | PC.NURSE ---
speaking with [facility] for transfer
--- NOTE | 2022-08-16 19:48 | PC.NURSE ---
pt on zoom meeting with sara pedraza
--- NOTE | 2022-08-16 20:23 | PC.NURSE ---
Received call from therapist at [facility]. Patient is not a candidate for admission to inpatient due to current statements made of denial of SI/HI.
--- NOTE | 2022-08-16 20:45 | PC.NURSE ---
Discussed safety plan at length with both patient and . Discussed coping mechanisms for overwhelming thoughts. acknowledges he is to be her support and safety partner. Patient verbally denies all SI/HI or intentions. Plan of care discussed at length.
[2022-08-16 20:58] VITALS: BP 152/75; PULSE 79; RESP 19; TEMP 36.7; O2SAT 98
== END 2022-08-16 21:06 | disposition home or self-care (01) ==
PROVIDERS: Emergency Provider Emergency Medicine; PCP Internal Medicine Adolescent Medicine
DX: R45.851 Suicidal ideations (principal); F32.A Depression, unspecified; F41.9 Anxiety disorder, unspecified; R05.1 Acute cough; R45.850 Homicidal ideations; I50.9 Heart failure, unspecified; J44.9 Chronic obstructive pulmonary disease, unspecified; I20.8 Other forms of angina pectoris; Z87.891 Personal history of nicotine dependence; Z20.822 Contact with and (suspected) exposure to COVID-19
CPT/HCPCS: 71046; 80053; 80305; 80329; 81001; 85025; 93005; 99285; C9803; U0003; U0005

== ENCOUNTER 2022-09-13 10:21 | Day surgery (SDC) | payer OTHER, SELFPAY ==
[2022-09-12 12:44] VITALS: BMI 44.9
[2022-09-13 10:34] VITALS: BP 139/73; PULSE 70; RESP 18; TEMP 36.5; O2SAT 97
[2022-09-13 11:54] VITALS: BP 111/69; PULSE 58; RESP 17; RESP 18; TEMP 36.5; O2SAT 99
--- NOTE | 2022-09-13 12:02 | EXP.OP.NOTE ---
Date of procedure: 09/13/22 Pre-op Diagnosis:: Right axillary cyst (1 cm) Post-op Diagnosis:: Same Procedure performed:: Excision of 1 cm right axillary cyst Surgeon:: Diallo Barr MD Anesthesia: local Estimated blood loss (mL): 1 Operative findings:: Shallow subcutaneous cyst excised in toto Operative note:: After informed consent was obtained the patient was taken to the procedure room. Her right axillary region was prepped and draped in a sterile fashion. After infiltration local anesthetic an incision was made overlying the central portion of the lesion. A 1 cm cystic lesion was then excised from the shallow subcutaneous tissue utilizing a combination of scalpel and tenotomy scissors. The lesion was passed off for pathologic evaluation. Skin was reapproximated with 4-0 nylon. Dressings were applied and the patient was discharged home in good condition. Condition: stable Disposition: no change Specimens:: Right axillary cyst Complications:: No immediate
== END 2022-09-13 12:07 | disposition home or self-care (01) ==
PROVIDERS: PCP Internal Medicine Adolescent Medicine; Visit Provider Surgery
PROC: (CPT 11402; principal; 2022-09-13 11:30)
DX: L72.0 Epidermal cyst (principal); Z79.899 Other long term (current) drug therapy
CPT/HCPCS: 11402

== ENCOUNTER 2022-10-13 08:43 | Emergency (ER) | payer OTHER, SELFPAY ==
[2022-10-13 08:44] VITALS: BP 130/75; PULSE 74; RESP 16; TEMP 36.5; O2SAT 97; BMI 44.9
--- NOTE | 2022-10-13 08:50 | PC.NURSE ---
ED MD AT BEDSIDE
--- NOTE | 2022-10-13 09:02 | HMH.EDGENADL ---
Discharge Plan Disposition Patient Disposition: Home, Self-Care Condition: Good Prescriptions Prescriptions: No Action celecoxib 200 mg capsule 200 mg PO Label Comments: TAKE 1 CAPSULE BY MOUTH TWICE DAILY omeprazole 40 mg capsule,delayed release(DR/EC) 40 mg PO spironolactone 25 mg tablet 25 mg PO Label Comments: TAKE 1 TABLET BY MOUTH TWICE DAILY FOR FLUID RETENTION buspirone 10 mg tablet 10 mg PO diclofenac sodium 1 % gel 2 g topical Label Comments: APPLY 2 GRAMS TOPICALLY FOUR TIMES DAILY FOR 14 DAYS Anoro Ellipta 62.5-25 mcg/actuation blister with device 1 inh inhalation Label Comments: INHALE 1 PUFF BY MOUTH EVERY DAY betamethasone dipropionate 0.05 % ointment 1 applic topical DAILY PRN (Reason: use at bedtime with qtip to ear canals) Qty: 15 1RF azelastine 137 mcg (0.1 %) aerosol,spray 1 spray intranasal BID Qty: 30 3RF Rx Instructions: administer into each nostril propranolol 20 mg tablet 20 mg PO BID Label Comments: TAKE 1 TABLET BY MOUTH TWICE DAILY albuterol sulfate 90 mcg/actuation HFA aerosol inhaler 1 mcg INHALATION NEEDED PRN (Reason: SOA) Label Comments: INHALE 2 PUFFS BY MOUTH EVERY 4 HOURS NEEDED Vraylar 1.5 mg capsule 1.5 mg PO DAILY Label Comments: TAKE 1 CAPSULE BY MOUTH EVERY DAY Referrals Follow up/Referrals: Chito Freeman MD [Primary Care Provider] - See instructions Activity Restrictions/Add. Instructions Additional Instructions/Restrictions: Use the erythromycin ointment 4 times a day for the next 24-48 hours while you have pain. If you continue to have eye pain beyond 48 hours, or any vision changes, return to the ED or follow up with your PCP / an clinical care coordinator. Return with any other concerns. Clinical Impressions Clinical Impression: Abrasion, corneal Instructions Patient Instructions: DI for Corneal Abrasion Discharge ED Provider: Brunilda Cooper General Adult HPI General Chief complaint: Eye Problems Stated complaint: Something stuck in left eye Time Seen by Provider: 10/13/22 09:11 Mode of Arrival: Ambulatory Limitations: No Limitations Description of Symptoms (Recalled from ER Triage Doc. by RN): PT C/O LEFT EYE PAIN, WOKE UP WITH PAIN THIS AM. REPORTS BURNING AND STABBING PAIN. DENIES VISUAL DISTURBANCE History of Present Illness HPI narrative: The patient is a 47 year old female with no past medical history other than seasonal allergies who presents with left eye irritation. She woke up with this this morning. She has no vision changes or blurry vision. She said she felt fine last night. She said it feels irritated and stabbing . She wears reading glasses but no contacts. Denies trauma. No N/V/D recent illnesses. Related Data Home Medications Medication Instructions Recorded Confirmed albuterol sulfate 90 mcg/actuation 1 mcg inhalation NEEDED PRN SOA 09/12/22 10/01/22 aerosol inhaler cariprazine 1.5 mg capsule 1.5 mg PO DAILY Depression 09/12/22 10/01/22 (Vraylar) propranolol 20 mg tablet 20 mg PO BID bp 09/12/22 10/01/22 buspirone 10 mg tablet 10 mg PO 10/01/22 10/01/22 celecoxib 200 mg capsule 200 mg PO 10/01/22 10/01/22 diclofenac sodium 1 % topical gel 2 g topical 10/01/22 10/01/22 omeprazole 40 mg capsule,delayed 40 mg PO 10/01/22 10/01/22 release spironolactone 25 mg tablet 25 mg PO 10/01/22 10/01/22 umeclidinium 62.5 mcg-vilanterol 1 inh inhalation 10/01/22 10/01/22 25 mcg/actuation powdr for inhalation (Anoro Ellipta) Previous Rx's Medication Instructions Recorded azelastine 137 mcg (0.1 %) nasal 1 spray intranasal BID #30 mL 10/01/22 spray aerosol betamethasone dipropionate 0.05 % 1 applic topical DAILY PRN use at 10/01/22 topical ointment bedtime with qtip to ear canals #15 grams Allergies Allergy/AdvReac Type Severity Reaction Status Date / Time codeine [CODEINE] Allergy Mild Melida
[2022-10-13 09:04] VITALS: BP 130/75; PULSE 74; RESP 16; TEMP 36.5; O2SAT 97
== END 2022-10-13 09:08 | disposition home or self-care (01) ==
LOC: ER 09:07
PROVIDERS: Emergency Provider Emergency Medicine; PCP Internal Medicine Adolescent Medicine
DX: S05.02XA Injury of conjunctiva and corneal abrasion without foreign body, left eye, initial encounter (principal); X58.XXXA Exposure to other specified factors, initial encounter; Z86.79 Personal history of other diseases of the circulatory system; I50.9 Heart failure, unspecified; J44.9 Chronic obstructive pulmonary disease, unspecified; Z98.51 Tubal ligation status; Z90.711 Acquired absence of uterus with remaining cervical stump
CPT/HCPCS: 99283; 99284

== ENCOUNTER → 2022-12-05 14:00 | Outpatient (POV) | payer OTHER, SELFPAY | PROVIDERS: Visit Provider Specialist/Technologist | DX: Z00.00 Encounter for general adult medical examination without abnormal findings (principal) ==

== ENCOUNTER 2022-12-21 08:19 | Day surgery (SDC) | payer OTHER, SELFPAY ==
[2022-12-18 12:09] VITALS: BMI 45.2
[2022-12-21 08:37] VITALS: BP 120/72; PULSE 66; RESP 18; TEMP 36.6; O2SAT 97
[2022-12-21 08:53] VITALS: O2SAT 97
--- NOTE | 2022-12-21 08:59 | EXP.ANES.CKL ---
[facility] Disclaimer: The information contained in this section may have been updated after the patient was seen, as this information can be updated by other users. Medical History Angina, class III Bilateral impacted cerumen CHF (congestive heart failure) Chronic ethmoiditis Chronic otitis externa COPD (chronic obstructive pulmonary disease) Diastolic dysfunction Edema Elevated left ventricular end-diastolic pressure (LVEDP) Hearing loss Nasal congestion Palpitations Recurrent acute otitis media Sleep apnea SOB (shortness of breath) Stenosis of external ear canal Tobacco use Surgical History History of axillary surgery History of carpal tunnel surgery History of colonoscopy History of ear surgery History of partial hysterectomy History of tubal ligation Family History (Updated 12/21/22 @ 08:34 by Sabiha Rene RN) Other Family history of diabetes mellitus type II No significant family history Social History (Updated 12/21/22 @ 08:33 by Sabiha Rene RN) Smoking Status: Never smoker second hand exposure: Yes alcohol intake: never counseling provided: none substance use type: denies use current occupational status: unemployed Travel in the last 8 weeks: None household members: spouse, family and children housing: house current occupational exposures/hazards: No caffeine: No [facility] Anesthesia Checklist Patient Identification Patient Identification: Arm Band Structural Data Admitted From: Home Planned Operative Procedure/s: colonoscopy Consent for Planned Operative Procedure(s) Verified: Yes Verified Documents: Surgical Consent and History and Physical NPO Status Verified Time NPO: 00:00 Additional verifications Anesthesia Reactions: No Airway Assessment C-Spine Mobility Assessed: Yes TMJ Mobility Assessed: Yes Dentition: Edentulous Neurological Assessment Level of Consciousness: Awake and Alert Anesthesia Plan Anesthesia Risk discussed: Yes Anesthesia Plan: Verified ASA Class: III Anesthesia Type: MAC
--- NOTE | 2022-12-21 09:56 | P.PCN_ITS ---
Procedure: Date: 12/21/22 Patient Date of :: 1975 Procedure Performed:: Total colonoscopy to terminal ileum with numerous polypectomy using snare and biopsy forceps Indications:: Patient is a 47-year-old female. I had previously seen her for right upper quadrant pain and had performed EGD. She was treated for H. pylori and duodenitis. She did have a repeat upper endoscopy as well as a colonoscopy on 12/22/2019. She had persistent refractory H. pylori and was ultimately referred to gastroenterology for refractory H. pylori. Dr. Mariano performed upper endoscopy on 06/20/2020 which revealed chronic inactive gastritis but no evidence of H. pylori. Her colonoscopy which was done 12/22/2019 revealed a couple of sessile serrated adenomas. Recommended repeat colonoscopy 2 years. Performing Provider:: Corky Callahan MD Referring Provider:: Chito Freeman MD Sedation:: MAC sedation Procedure:: Patient history was obtained and appropriate physical examination was performed. Patient's medications and allergies were reviewed. Informed consent was obtained after explaining the benefits, alternatives, and risks of the procedure including, but not limited to, bleeding, perforation, missed lesions, and adverse reaction to anesthesia medications. Patient was transported to endoscopy procedure room. Patient was connected to monitoring devices. Throughout the procedure the patient's blood pressure, pulse, and oxygen saturations were monitored continuously. Patient identification and planned procedure were verified by the staff. Patient was positioned in lateral decubitus position. Digital anorectal exam was performed. Variable stiffness Olympus colonoscope was inserted and advanced under direct visualization to the cecum. Adequacy of the colonic preparation was noted. The colonoscope was advanced a short distance into the terminal ileum. The colonoscope was then slowly withdrawn while carefully examining the color, texture, anatomy, and integrity of the mucosoa circumfer entially. Within the rectum retroflexion was performed. Colonoscope was then withdrawn. Findings:: Colonic preparation was fair as there was opaque particulate green liquid stool throughout the colon. High-volume trans colonoscopic irrigation and suctioning cleared most of this. Near the hepatic flexure she had an adenomatous appearing polyp removed with cold cutting snare. In the proximal transverse colon there was a diminutive adenomatous appearing polyp removed with cold snare with polyp base removed with biopsy forceps. It is unclear if the snare portion of the polypectomy was retrieved due to the particulate stool present. In the mid transverse colon there was a sessile polyp which ultimately required injection of Denisa view with removal using snare and residual tissue removed with biopsy forceps. In the distal transverse colon there was a small polyp removed with snare. Sigmoid colon there is a diminutive possible hyperplastic appearing polyp removed with biopsy forceps. In the rectosigmoid region there were numerous hyperplastic appearing polyps, total of 8, removed with biopsy forceps. Impression: Fair prep Polyps as noted above, total of 13 polyps removed Recommendations:: Likely repeat colonoscopy 3 years pending pathology with multi day prep Complications:: None immediate Estimated blood obtained (mL): 2
[2022-12-21 09:58] VITALS: BP 89/56; PULSE 65; RESP 18; TEMP 36.1; O2SAT 94
[2022-12-21 10:08] VITALS: BP 111/66; PULSE 68; RESP 18; O2SAT 96
[2022-12-21 10:16] VITALS: BP 119/81; PULSE 68; RESP 18; O2SAT 96
[2022-12-21 10:22] VITALS: BP 108/75; PULSE 68; RESP 18; O2SAT 97
== END 2022-12-21 10:30 | disposition home or self-care (01) ==
PROVIDERS: PCP Internal Medicine Adolescent Medicine; Visit Provider Surgery
PROC: 0DJD8ZZ Inspection of Lower Intestinal Tract, Via Natural or Artificial Opening Endoscopic (ICD-10-PCS; CPT 45380; principal; 2022-12-21 09:30)
DX: Z12.11 Encounter for screening for malignant neoplasm of colon (principal); D12.6 Benign neoplasm of colon, unspecified; Z86.010 Personal history of colon polyps
CPT/HCPCS: 45380; 45385; J2704

== ENCOUNTER → 2022-12-28 08:44 | Outpatient (CLI) | payer OTHER, SELFPAY ==
--- NOTE | 2022-12-28 08:47 | US_ITS ---
FINAL REPORT CLINICAL HISTORY: ELEVATED LIVER ENZYMES FINDINGS: Sonographic images of the right upper quadrant were obtained. The pancreas is partially obscured. The liver is fatty infiltrated. The gallbladder appears normal without evidence of gallstones.There is no evidence of biliary ductal dilatation.The common duct measures 5 mm. Limited images of the right kidney are unremarkable. IMPRESSION: Fatty infiltration of the liver, otherwise unremarkable right upper quadrant ultrasound. Reviewed, Interpreted and Dictated by Corky Mitchell III, MD Transcribed by Edel Burks Authenticated and [facility]
== END ==
PROVIDERS: PCP Internal Medicine Adolescent Medicine; Visit Provider Internal Medicine Adolescent Medicine
DX: R74.8 Abnormal levels of other serum enzymes (principal)
CPT/HCPCS: 76705

== ENCOUNTER 2023-05-03 06:01 | Emergency (ER) | payer OTHER, SELFPAY ==
[2023-05-03] VITALS (26 sets, daily range): BP systolic 102–148; BP diastolic 54–101; PULSE 66–108; RESP 10–22; TEMP 36.7–37; O2SAT 93–98; BMI 45.9
--- NOTE | 2023-05-03 06:03 | ECG_ITS ---
APPROVED REPORT Exam: Resting ECG HR:110 bpm ECG Measurements Heart Rate 110 AXES WV 168 P 34 QRSd 87 QRS -8 QT 315 T 30 QTc 380 Conclusion SINUS TACHYCARDIA Late R wave progression ABNORMAL RHYTHM ECG UNCONFIRMED REPORT Electronically signed by : Chito Freeman MD 05/03/2023 12:07:27
--- NOTE | 2023-05-03 06:07 | PC.NURSE ---
Spoke with poison control at this time. Advised to observe for 6 hours post ingestion. Watch for s/s of blurred vision, tachycardia, hypotension, N/V, seizures. 50gm charcoal PO. Tox labs, EKG, and cmp. Info relayed to at this time.
--- NOTE | 2023-05-03 06:08 | PC.NURSE ---
pt placed in gown and pt's belongings in a bag. staff member @ bedside
--- NOTE | 2023-05-03 06:13 | PC.NURSE ---
Seizure pads placed, holly at bedside 1:1
--- NOTE | 2023-05-03 06:14 | HMH.EDGENADL ---
Discharge Plan Disposition Patient Disposition: Xfer Psychiatric Hosp Condition: Good Prescriptions Prescriptions: No Action omeprazole 40 mg capsule,delayed release(DR/EC) 40 mg PO HS Anoro Ellipta 62.5-25 mcg/actuation blister with device 1 inh inhalation DAILY Patient Comments: INHALE 1 PUFF BY MOUTH EVERY DAY fluoxetine [Prozac] 20 mg capsule 20 mg PO DAILY Qty: 30 1RF albuterol sulfate 90 mcg/actuation HFA aerosol inhaler 1 mcg INHALATION NEEDED PRN (Reason: SOA) Patient Comments: INHALE 2 PUFFS BY MOUTH EVERY 4 HOURS NEEDED Referrals Follow up/Referrals: Provider,Referral, MD [Primary Care Provider] - See instructions Clinical Impressions Clinical Impression: Suicidal ideation Discharge ED Provider: Bette Kline General Adult HPI <Don Escobar DO - Last Filed: 05/03/23 07:09> General Chief complaint: Overdose Stated complaint: overdose Time Seen by Provider: 05/03/23 06:04 Mode of Arrival: EMS Source of Information: Patient and EMS Limitations: No Limitations Description of Symptoms (Recalled from ER Triage Doc. by RN): pt states she took 25 500mg robaxin @ 505am in attempt to of suicide. pt then changed her mind and called EMS History of Present Illness HPI narrative: 48-year-old female with past medical history significant for PTSD, depression, CHF, COPD, presents today for evaluation concerning suicidal ideation with attempt. Per EMS and patient, patient took anywhere from 20-25 500 mg Robaxin tablets around 5 AM. Patient states that she has been stressed in the home secondary to her being an alcoholic. She denies any homicidal ideations or visual/auditory hallucinations at this time. Denies taking any other substances in attempt to harm herself. She does report a suicide attempt with ingestion when she was younger. She does report nausea but denies any emesis, fevers, chills, chest pain, shortness of breath, abdominal pain, diarrhea, dysuria, hematuria or any other associated symptoms. No further complaints. Related Data Home Medications Medication Instructions Recorded Confirmed albuterol sulfate 90 mcg/actuation 1 mcg inhalation NEEDED PRN SOA 09/12/22 01/04/23 aerosol inhaler omeprazole 40 mg capsule,delayed 40 mg PO HS GERD 10/01/22 01/04/23 release umeclidinium 62.5 mcg-vilanterol 1 inh inhalation DAILY COPD 10/01/22 01/04/23 25 mcg/actuation powdr for inhalation (Anoro Ellipta) Previous Rx's Medication Instructions Recorded fluoxetine 20 mg capsule (Prozac) 20 mg PO DAILY #30 caps 01/04/23 Allergies Allergy/AdvReac Type Severity Reaction Status Date / Time codeine [CODEINE] Allergy Mild Verified 01/04/23 09:06 sulfamethoxazole Allergy Mild Verified 01/04/23 09:06 [From SEPTRA] trimethoprim [From SEPTRA] Allergy Mild Verified 01/04/23 09:06 [facility] <Don Escobar, DO - Last Filed: 05/03/23 07:09> [facility] Disclaimer: The information contained in this section may have been updated after the patient was seen, as this information can be updated by other users. Medical History Angina, class III Bilateral impacted cerumen CHF (congestive heart failure) Chronic ethmoiditis Chronic otitis externa COPD (chronic obstructive pulmonary disease) Diastolic dysfunction Edema Elevated left ventricular end-diastolic pressure (LVEDP) Hearing loss Major depressive disorder Nasal congestion Palpitations Posttraumatic stress disorder Recurrent acute otitis media Sleep apnea SOB (shortness of breath) Stenosis of external ear canal Tobacco use Surgical History History of axillary surgery History of carpal tunnel surgery History of colonoscopy History of ear surgery History of partial hysterectomy History of tubal ligation Family History (Updated 12/21/22 @ 08:34 by Sabiha Rene RN) Other Family history of diabetes mellitus type II No significant f
--- NOTE | 2023-05-03 06:14 | PC.NURSE ---
patient states that if she has to go to a mental hospital she wants to go [facility]
[2023-05-03 06:30] LABS: Microscopic, Urine URINE MICROSCOPIC (MICROSCOPIC)
[2023-05-03 06:31] LABS: Appearance,Urine SL CLOUDY (Clear); Bilirubin,Urine Negative (Negative); Blood, Urine Negative (Negative); Color,Urine YELLOW (Yellow); Glucose,Urine (UA) Negative (Negative); Ketones,Urine Negative (Negative); Leukocyte Esterase,Urine Negative (Negative); Nitrate,Urine Negative (Negative); Protein,Urine Negative (Negative); Specific Gravity, Urine 1.025 (1.005-1.030); Urobilinogen,Urine 0.2 EU/dl (0.2)
[2023-05-03 06:33] LABS: Basophils # 0.1 K/mm3 (0-0.2); Basophils % 0.9 % (0.1-2.0); Eosinophils # 0.3 K/mm3 (0.0-0.4); Hematocrit 44.3 % (37.0-47.0); Hemoglobin 14.3 g/dL (12.2-16.2); Lymphocytes # 3.5 K/mm3 (0.7-4.5); Lymphocytes % 33.2 % (10-50); Mean Corpuscular HGB Conc 32.3 g/dL (31.8-35.4); Mean Corpuscular Hemoglobin 28.5 pg (27.0-31.2); Mean Corpuscular Volume 88.3 fl (81-99); Mean Platelet Volume 7.8 fl (7.4-10.4); Monocytes # 0.5 K/mm3 (0.1-1.0); Monocytes % 4.8 % (1.7-9.3); Neutrophils # 6.1 K/mm3 (1.8-7.8); Neutrophils % 58.1 % (37.0-80.0); Platelet Count 348 K/mm3 (142-424); Red Blood Count 5.02 M/mm3 (4.20-5.40); Red Cell Distribution Width 13.8 % (11.5-17.5); White Blood Count 10.5 K/mm3 (4.8-10.8)
[2023-05-03 06:37] LABS: Alanine Aminotransferase 99 U/L (12-78); Albumin Level 4.4 g/dl (3.5-5.0); Alkaline Phosphatase 116 U/L (38-126); Aspartate Amino Transferase 63 U/L (14-36); Bilirubin,Total 0.3 mg/dl (0.2-1.3); Blood Urea Nitrogen 9 mg/dl (7-17); Calcium 9.1 mg/dl (8.4-10.2); Carbon Dioxide 27 mmol/L (22.0-30.0); Chloride 102 mmol/L (98-107); Creatinine Clearance Estimated 89 mL/min (50-200); Estimated Glomerular Filt Rate 90 ml/min (>60); GFR (African American) 109 ML/MIN (>60); Globulin 4.6 g/dL (1.3-3.2); Glucose 165 mg/dl (74-100); Sodium 141 mmol/L (136-145)
[2023-05-03 06:41] LABS: Acetaminophen < 10 ug/ml (10-30); Ethyl Alcohol < 10 mg/dl (0-10); HCG Qualitative, Serum Negative (Negative); Salicylate < 1.0 mg/dL (2.0-20.0)
--- NOTE | 2023-05-03 06:50 | PC.NURSE ---
pt states she can't drink any more of the charcoal
[2023-05-03 07:03] LABS: Bacteria,Urine Trace /lpf; WBC,Urine Occasional #/hpf (0-3)
--- NOTE | 2023-05-03 07:04 | PC.NURSE ---
Med maxillofacial surgeon taking over for 1:1 with pt
[2023-05-03 07:09] LABS: Benzodiazepines Screen,Urine Negative ng/ml (<200)
[2023-05-03 07:10] LABS: Amphetamine/Metha Screen,Urine Negative ng/ml (<1000)
[2023-05-03 07:11] LABS: Barbiturates Screen,Urine Negative ng/ml (<200); Methadone Screen,Urine Negative ng/ml (<300)
[2023-05-03 07:12] LABS: Cannabinoid Screen,Urine Negative ng/ml (<50)
[2023-05-03 07:13] LABS: Cocaine Screen,Urine Negative ng/ml (<300)
[2023-05-03 07:14] LABS: Opiate Screen,Urine Negative ng/ml (<300)
[2023-05-03 07:15] LABS: Phencyclidine Screen,Urine Negative ng/ml (<25)
--- NOTE | 2023-05-03 07:20 | PC.NURSE ---
placed call to marcus joshi, faxed papers, awaiting return call
--- NOTE | 2023-05-03 07:35 | PC.NURSE ---
called dietary for meal tray
--- NOTE | 2023-05-03 08:08 | PC.NURSE ---
meal tray given to pt
--- NOTE | 2023-05-03 08:12 | PC.NURSE ---
1:1 tech note: ROSAURA Diego sitting 1:1 with pt at 0745 for relief
--- NOTE | 2023-05-03 08:32 | PC.NURSE ---
pt sleeping at this time
--- NOTE | 2023-05-03 09:21 | SW/DCPLANNER ---
I received a consult on this patient regarding: substance abuse/overdose. I called and spoke with ED nursing staff (November) and she stated the plan for this patient is to discharge to [facility]. I informed Maria R if I could assist please call me.
--- NOTE | 2023-05-03 09:24 | PC.NURSE ---
pt sleeping in bed med mohs surgeon still at bs 1:1
--- NOTE | 2023-05-03 10:41 | PC.NURSE ---
patient speaking with [facility] staff on zoom at this time
--- NOTE | 2023-05-03 11:13 | PC.NURSE ---
Report called to Bianca at [facility].
--- NOTE | 2023-05-03 11:34 | PC.NURSE ---
pt visitor at gave pt her cellphone she is still be monitored 1:1 juan byarra at
--- NOTE | 2023-05-03 11:45 | PC.NURSE ---
pt stated to Sabiha(med surgical services asst) setting 1:1 at bs that she did not want to go to [facility] charge nurse at [facility] speaking with pt
--- NOTE | 2023-05-03 11:46 | PC.NURSE ---
Pt states she is not suicidal and does not want to go [place] [facility] and she was under the impression that she was going to talk to her psychiatrist here at the hospital who was Melba Martel. PT states that it was an impulse not a plan of suicide this morning and that is why she reached out to EMS after she took the pills. MD rl and at bs. Explained to the pt that when I said nurse talked to her at the beginning of shift she stated to myself that she was aware and wanted to go to [facility]. Juliette Landis at bs at that time and during this time. Explained at this time, if she is not going voluntarily then we will have to do the 72 hour hold.
--- NOTE | 2023-05-03 12:08 | PC.NURSE ---
optical instruments supervisor aware of situation with pt
== END 2023-05-03 12:17 ==
PROVIDERS: Emergency Medicine; Emergency Provider Emergency Medicine
DX: R45.851 Suicidal ideations (principal); T48.1X2A Poisoning by skeletal muscle relaxants [neuromuscular blocking agents], intentional self-harm, initial encounter; F43.10 Post-traumatic stress disorder, unspecified; F32.9 Major depressive disorder, single episode, unspecified; J44.9 Chronic obstructive pulmonary disease, unspecified; I50.9 Heart failure, unspecified; I20.9 Angina pectoris, unspecified; G47.30 Sleep apnea, unspecified; F17.210 Nicotine dependence, cigarettes, uncomplicated; R00.0 Tachycardia, unspecified
CPT/HCPCS: 80053; 80305; 80329; 81001; 84703; 85025; 93005; 96361; 96374; 99285; J2405

== ENCOUNTER 2023-09-17 12:13 | Outpatient (CLI) | payer OTHER, SELFPAY ==
--- NOTE | 2023-09-17 12:19 | XR_ITS ---
FINAL REPORT CLINICAL HISTORY: RT KNEE PAIN FINDINGS: Right knee Three views were obtained. There is no acute fracture or dislocation. There are mild degenerative changes. No soft tissue abnormality is identified. IMPRESSION: No acute process. Reviewed, Interpreted and Dictated by Corky Mitchell III, MD Transcribed by Digna Montez Authenticated and [facility]
== END 2023-09-17 23:59 ==
LOC: RAD 12:14
PROVIDERS: PCP Internal Medicine Adolescent Medicine; Visit Provider Nurse Practitioner Family
DX: M25.561 Pain in right knee (principal)
CPT/HCPCS: 73562

== ENCOUNTER 2023-11-11 13:31 | Outpatient (CLI) | payer OTHER, SELFPAY ==
--- NOTE | 2023-11-11 13:32 | MR_ITS ---
FINAL REPORT CLINICAL HISTORY: Rt Knee Pain. knee instability. no injury or trauma FINDINGS: Multiplanar MR imaging of the right knee was performed without contrast. The medial and lateral menisci are intact without evidence of meniscal tear. The anterior and posterior cruciate ligaments are intact. The medial collateral ligament and lateral ligamentous complex are intact. The patellar and quadriceps tendons are intact. There is no evidence of fracture. There are mild to moderate degenerative changes. Subchondral cysts are seen in the lateral femoral condyle and lateral tibial plateau. There is severe patellar chondromalacia with multiple subchondral cysts. A moderate-sized joint effusion is seen. The musculature is intact. No soft tissue mass or cyst is identified. IMPRESSION: Ligaments and menisci intact. Mild to moderate degenerative changes with subchondral cyst at the lateral femoral condyle and lateral tibial plateau and severe patellar chondromalacia. Reviewed, Interpreted and Dictated by Corky Mitchell III, MD Transcribed by Edel Burks Authenticated and [facility]
== END 2023-11-11 23:59 | disposition home or self-care (01) ==
LOC: RAD 13:32
PROVIDERS: PCP Internal Medicine Adolescent Medicine; Visit Provider Orthopaedic Surgery
DX: M22.41 Chondromalacia patellae, right knee (principal)
CPT/HCPCS: 73721

== ENCOUNTER 2023-12-14 22:45 | Emergency (ER) | payer OTHER, SELFPAY ==
[2023-12-14 22:47] VITALS: BP 152/93; PULSE 84; RESP 20; TEMP 36.8; O2SAT 99; BMI 46.2
--- NOTE | 2023-12-14 22:54 | XR_ITS ---
PROCEDURE INFORMATION: Exam: XR Left Ankle Exam date and time: 12/14/2023 10:54 PM Age: 48 years old Clinical indication: Pain; Ankle; Left; Additional info: Fall, medial and posterior tenderness TECHNIQUE: Imaging protocol: Radiologic exam of the left ankle. Views: 3 or more views. COMPARISON: CR XR KNEE LT 4V 06/20/2021 11:10 AM FINDINGS: Bones/joints: Normal. No acute fracture identified. Soft tissues: Soft tissue swelling around the ankle. IMPRESSION: No acute findings.
--- NOTE | 2023-12-14 22:54 | XR_ITS ---
PROCEDURE INFORMATION: Exam: XR Right Knee Exam date and time: 12/14/2023 10:51 PM Age: 48 years old Clinical indication: Pain; Knee; Right; Additional info: Pain, fall TECHNIQUE: Imaging protocol: Radiologic exam of the right knee. Views: 3 views. COMPARISON: X-ray 09/17/2023 FINDINGS: Bones/joints: No acute fracture identified. Mild tricompartmental degenerative changes. Soft tissues: Normal. IMPRESSION: No acute abnormality.
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
[2023-12-14] MEDS: IBUPROFEN 600 MG TABLET PO (22:59)
--- NOTE | 2023-12-15 01:07 | PC.NURSE ---
BETHANYAD contacted for update on xray reads
[2023-12-15 01:22] VITALS: BP 134/87; PULSE 84; RESP 18; TEMP 36.8; O2SAT 99
== END 2023-12-15 01:28 | disposition home or self-care (01) ==
PROVIDERS: Emergency Provider Emergency Medicine; PCP Internal Medicine Adolescent Medicine
DX: M25.572 Pain in left ankle and joints of left foot (principal); M25.561 Pain in right knee; W19.XXXA Unspecified fall, initial encounter
CPT/HCPCS: 73562; 73610; 99283

== ENCOUNTER 2023-12-18 12:52 | Outpatient (POV) | payer OTHER, SELFPAY ==
[2023-12-18 13:18] VITALS: BP 117/82; PULSE 82; RESP 18; O2SAT 95; BMI 46.9
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
== END 2023-12-18 23:59 | disposition home or self-care (01) ==
LOC: SC.PAIN 12:52
PROVIDERS: PCP Internal Medicine Adolescent Medicine; Visit Provider Nurse Practitioner Family
DX: M25.561 Pain in right knee (principal); G89.29 Other chronic pain
CPT/HCPCS: 99202; G0463

== ENCOUNTER 2024-01-16 15:28 | Outpatient (POV) | payer OTHER, SELFPAY ==
[2024-01-16 15:35] VITALS: BP 137/83; PULSE 88; RESP 16; O2SAT 96; BMI 45.7
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
== END 2024-01-16 23:59 | disposition home or self-care (01) ==
LOC: SC.PAIN 15:28
PROVIDERS: PCP Internal Medicine Adolescent Medicine; Visit Provider Nurse Practitioner Family
DX: M25.561 Pain in right knee (principal); G89.29 Other chronic pain
CPT/HCPCS: 99212; G0463

== ENCOUNTER 2024-02-13 14:23 | Outpatient (POV) | payer OTHER, SELFPAY ==
[2024-02-13 14:44] VITALS: BP 118/74; PULSE 62; RESP 16; O2SAT 96; BMI 44.9
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
== END 2024-02-13 23:59 | disposition home or self-care (01) ==
LOC: SC.PAIN 14:23
PROVIDERS: PCP Internal Medicine Adolescent Medicine; Visit Provider Nurse Practitioner Family
DX: M25.561 Pain in right knee (principal); G89.29 Other chronic pain
CPT/HCPCS: 99212; G0463

== ENCOUNTER 2024-05-20 13:34 | Outpatient (CLI) | payer OTHER, SELFPAY ==
[2024-05-20 14:13] LABS: Basophils # 0.1 K/mm3 (0-0.2); Basophils % 0.8 % (0.1-2.0); Eosinophils # 0.3 K/mm3 (0.0-0.4); Eosinophils % 3.5 % (0.1-12.0); Hemoglobin 14.1 g/dL (12.2-16.2); Lymphocytes % 24.9 % (10-50); Mean Corpuscular HGB Conc 34.3 g/dL (31.8-35.4); Mean Corpuscular Hemoglobin 29.3 pg (27.0-31.2); Mean Corpuscular Volume 85.3 fl (81-99); Mean Platelet Volume 7.9 fl (7.4-10.4); Monocytes # 0.4 K/mm3 (0.1-1.0); Monocytes % 5.2 % (1.7-9.3); Neutrophils # 5.4 K/mm3 (1.8-7.8); Neutrophils % 65.6 % (37.0-80.0); Platelet Count 328 K/mm3 (142-424); Red Blood Count 4.81 M/mm3 (4.20-5.40); Red Cell Distribution Width 14.3 % (11.5-17.5); White Blood Count 8.2 K/mm3 (4.8-10.8)
[2024-05-20 14:29] LABS: Albumin Level 4.4 g/dl (3.5-5.0); Chloride 103 mmol/L (98-107); Sodium 137 mmol/L (136-145)
[2024-05-20 14:30] LABS: Potassium 4.6 mmoL/L (3.5-5.1)
[2024-05-20 14:32] LABS: Alanine Aminotransferase 67 U/L (12-78); Albumin/Globulin Ratio 1.3 (1.1-1.8); Alkaline Phosphatase 110 U/L (38-126); Anion Gap 10.6 mEq/L (5-15); Aspartate Amino Transferase 42 U/L (14-36); Bilirubin,Total 0.6 mg/dl (0.2-1.3); Blood Urea Nitrogen 13 mg/dl (7-17); Calcium 9.5 mg/dl (8.4-10.2); Carbon Dioxide 28 mmol/L (22.0-30.0); Cholesterol 193 mg/dl (140-200); Estimated Glomerular Filt Rate 89 ml/min (>60); GFR (African American) 108 ML/MIN (>60); Globulin 3.5 g/dL (1.3-3.2); Glucose 112 mg/dl (74-100); Total Protein,Serum 7.9 g/dl (6.3-8.2); Triglycerides 98 mg/dl (30-150); VLDL Cholesterol 20 mg/dL (0-40)
[2024-05-20 14:33] LABS: Chol/HDL Ratio 4.5 (1-3.5); HDL Cholesterol 43 mg/dl (40-60)
[2024-05-20 14:53] LABS: Hemoglobin A1C 6.2 % (4.0-6.0)
[2024-05-20 14:55] LABS: Free Thyroxine Index 2.9 ug/dL (5.93-13.13); T4 (Thyroxine) 8.3 ug/dl (5.53-11.0); Triiodothryronine (T3) Uptake 35 % (23.5-40.5)
[2024-05-20 15:09] LABS: Thyroid Stimulating Hormone 1.31 uIU/mL (0.465-4.68)
== END 2024-05-20 23:59 | disposition home or self-care (01) ==
LOC: LAB 13:35
PROVIDERS: PCP Internal Medicine Adolescent Medicine; Visit Provider Nurse Practitioner Family
DX: Z00.00 Encounter for general adult medical examination without abnormal findings (principal); Z83.3 Family history of diabetes mellitus; R63.1 Polydipsia
CPT/HCPCS: 36415; 80050; 80053; 80061; 83036; 84436; 84443; 84479; 85025

== ENCOUNTER 2024-06-10 11:48 | Outpatient (CLI) | payer OTHER, SELFPAY ==
--- NOTE | 2024-06-10 11:52 | XR_ITS ---
FINAL REPORT CLINICAL HISTORY: .rt hip pain FINDINGS: Right hip Three views were obtained. There is no fracture or dislocation. The joint spaces appear normal. No soft tissue abnormality is identified. IMPRESSION: No acute process. Reviewed, Interpreted and Dictated by Corky Mitchell III, MD Transcribed by Digna Montez Authenticated and [facility]
== END 2024-06-10 23:59 | disposition home or self-care (01) ==
LOC: RAD 11:48
PROVIDERS: PCP Internal Medicine Adolescent Medicine; Visit Provider Internal Medicine Adolescent Medicine
DX: M25.551 Pain in right hip (principal)
CPT/HCPCS: 73502

== ENCOUNTER 2024-06-30 13:35 | Outpatient (CLI) | payer OTHER, SELFPAY ==
--- NOTE | 2024-06-30 13:38 | XR_ITS ---
FINAL REPORT CLINICAL HISTORY: RT ANTERIOR KNEE PAIN COMPARISON: None FINDINGS: AP, lateral and oblique views of the right knee were obtained. There is no prior exam for comparison. There is no acute osseous abnormality of the right knee. Mild degenerative change is present. The soft tissues are normal. There is a small joint effusion. IMPRESSION: No acute osseous abnormality of the right knee. Reviewed, Interpreted and Dictated by Karie Birch MD Transcribed by Sara Ellington Authenticated and . [facility]
== END 2024-06-30 23:59 | disposition home or self-care (01) ==
LOC: RAD 13:35
PROVIDERS: PCP Internal Medicine Adolescent Medicine; Visit Provider Internal Medicine Adolescent Medicine
DX: M25.561 Pain in right knee (principal)
CPT/HCPCS: 73562

== ENCOUNTER 2024-07-06 13:29 | Outpatient (CLI) | payer OTHER, SELFPAY | END 2024-07-06 23:59 | disposition home or self-care (01) | LOC: RT 13:30 | PROVIDERS: PCP Internal Medicine Adolescent Medicine; Visit Provider Internal Medicine | DX: R00.2 Palpitations (principal); I07.1 Rheumatic tricuspid insufficiency; I34.0 Nonrheumatic mitral (valve) insufficiency | CPT/HCPCS: 93270 ==

== ENCOUNTER 2024-07-10 13:31 | Outpatient (CLI) | payer OTHER, SELFPAY ==
--- NOTE | 2024-07-10 13:33 | CA_ITS ---
APPROVED REPORT EXAM: Comprehensive 2D, Doppler, and color-flow Echocardiogram Clinical Product Specialist: Sheila De La Torre RVT Ht: 5 ft 5 in Wt: 285lbs BSA: 2.30 BP: 120/90 mmHg Indications: DD,EDEMA,PALPS,DM,COPD 2D Dimensions LA Volume 44.30 mL LA Volume Index 19.26 mL/m2 (M/F) 16-34 M-Mode Dimensions RVDd 2.08 cm (0.9-2.6) LA Diam 3.94 cm (1.9-4.0) LVDd 5.17 cm (3.5-5.7) LVDs 3.22 cm (3.5-5.7) IVSd 1.23 cm (0.6-1.1) PWd 0.89 cm (0.6-1.1) EF (Teich) 67.40% FS 37.70% EDV (Teich) 127.80 mL TAPSE 2.37 (<1.7) ESV (Teich) 41.60 mL LV Diastology E Decel Time 223 (160-240 msec) E/A Ratio 0.9 Aortic Valve JORGE ALBERTO Index 1.67 cm2/m2 AoV Peak Bello. 145.0 (50-130 cm/s) AO Peak GR. 8.40 mmHg AO Mean GR. 4.40 (<5 mmHg) AO VTI 30.3 (18-25 cm) JORGE ALBERTO (VTI) 3.94 (2.5-4.5 cm2) Mitral Valve MV E Max Bello. 77.0 (40-130 cm/s) MV A Velocity 87.0 (40-130 cm/s) E/A Ratio 0.89 MV PHT 65.0 ms Pulmonary Valve PV Peak Velocity 101.0 (50-150 cm/s) Tricuspid Valve TR P. Velocity 205.00 cm/s RAP Estimate 10.00 mmHg RVSP 26.80 mmHg Left Ventricle The left ventricle is normal size. The left ventricular systolic function is normal. The left ventricular ejection fraction is within the normal range. There is normal basal left ventricular wall thickness. There is mild increase in LV wall thickness towards the LV apex. There is normal LV segmental wall motion. The left ventricular diastolic function is normal. LVEF is 55%. Right Ventricle The right ventricle is normal size. The right ventricular systolic function is normal. Atria The left atrium size is normal. The right atrium size is normal. There is no Doppler evidence of interatrial shunt. Aortic Valve The aortic valve is normal in structure. There is no aortic valvular stenosis. No aortic regurgitation. Mitral Valve The mitral valve is normal in structure. No evidence of mitral valve stenosis. Trace mitral regurgitation. Tricuspid Valve Tricuspid valve is grossly normal in structure and function. Trace tricuspid regurgitation. There is insufficient TR jet to estimate RVSP. Pulmonic Valve The pulmonary valve is normal in structure. Trace pulmonic regurgitation. Great Vessels The aortic root is normal in size. The ascending aorta is normal in size. IVC is normal in size and collapses >50% with inspiration. Pericardium There is no pericardial effusion. Other Information Study Quality: Fair Conclusion Normal biventricular systolic function. There is normal basal left ventricular wall thickness. There is mild increase in LV wall thickness towards the LV apex. No significant valvular stenosis or regurgitation. In the setting of symptoms and mild increase in apical LV wall thickness, further evaluation with cardiac MRI is suggested to evaluate for apical HCM vs. LV foreshortening on echo. Electronically signed by : Liliana Crouch MD 07/19/2024 16:34:28
== END 2024-07-10 23:59 | disposition home or self-care (01) ==
LOC: RT 13:32
PROVIDERS: PCP Internal Medicine Adolescent Medicine; Visit Provider Internal Medicine
DX: I07.1 Rheumatic tricuspid insufficiency (principal); I34.0 Nonrheumatic mitral (valve) insufficiency; R00.2 Palpitations
CPT/HCPCS: 93306

== ENCOUNTER 2024-07-24 10:13 | Outpatient (CLI) | payer OTHER, SELFPAY ==
--- NOTE | 2024-07-24 10:16 | MM_ITS ---
PROCEDURE INFORMATION: Exam: MG Bilateral Screening 3D Mammography Exam date and time: 07/24/2024 10:08 AM Age: 49 years old Clinical indication: Screening examination; Family history of breast cancer in patient's mother TECHNIQUE: Imaging protocol: Bilateral Screening tomosynthesis and 2D mammography including computer-aided detection (CAD) when performed. COMPARISON: 1. MG MM DIG SCREENING MAMM BI W/CAD 05/16/2020 4:57 PM 2. MG DXBI MM Dig mamm BI DX w/CAD 11/17/2018 1:58 PM FINDINGS: MAMMOGRAPHY: Breast composition: There are scattered areas of fibroglandular density. Mass: No suspicious masses. Architectural distortion: None. Calcifications: No suspicious calcifications. Asymmetric density: None. Skin thickening: None. Axillary adenopathy: None. IMPRESSION: No mammographic evidence of malignancy. Annual screening is recommended unless otherwise clinically indicated. ASSESSMENT: BI-RADS Category 1: Negative.
== END 2024-07-24 23:59 | disposition home or self-care (01) ==
LOC: RAD 10:14
PROVIDERS: PCP Internal Medicine Adolescent Medicine; Visit Provider Internal Medicine Adolescent Medicine
DX: Z12.31 Encounter for screening mammogram for malignant neoplasm of breast (principal)
CPT/HCPCS: 77063; 77067

== ENCOUNTER 2024-08-21 10:02 | Outpatient (CLI) | payer OTHER, SELFPAY ==
[2024-08-21 10:21] LABS: Blood Urea Nitrogen 11 mg/dl (7-17); Estimated Glomerular Filt Rate 89 ml/min (>60); GFR (African American) 108 ML/MIN (>60)
[2024-08-21] MEDS: GADOTERIDOL INJ 20ML SYRINGE 20 ML IV (11:40)
[2024-08-21] MEDS: GADOTERIDOL INJ 10ML SYRINGE 8 ML IV (11:40)
[2024-08-21] MEDS: 0.9 % SODIUM CHLORIDE 50 ML VIAL IV (11:40)
[2024-08-21] MEDS: SODIUM CHLORIDE 0.9% 10ML SYR (RAD ONLY) 10 ML IV (11:40)
== END 2024-08-21 23:59 | disposition home or self-care (01) ==
LOC: RAD 10:03
PROVIDERS: PCP Internal Medicine Adolescent Medicine; Visit Provider Internal Medicine
DX: I50.33 Acute on chronic diastolic (congestive) heart failure (principal); R00.2 Palpitations; E11.9 Type 2 diabetes mellitus without complications
CPT/HCPCS: 36415; 75561; 82565; 84520; A9576

== ENCOUNTER 2025-02-01 14:00 | Outpatient (RCR) | payer OTHER, SELFPAY | END 2025-02-01 23:59 | disposition home or self-care (01) | LOC: PT 14:00 | PROVIDERS: Visit Provider Orthopaedic Surgery Adult Reconstructive Orthopaedic Surgery | DX: Z47.89 Encounter for other orthopedic aftercare (principal); Z96.651 Presence of right artificial knee joint | CPT/HCPCS: 97016; 97110; 97140; 97162; 97530 ==

== ENCOUNTER 2025-03-02 15:00 | Outpatient (RCR) | payer OTHER, SELFPAY | END 2025-03-02 23:59 | disposition home or self-care (01) | LOC: PT 15:00 | PROVIDERS: Visit Provider Orthopaedic Surgery Adult Reconstructive Orthopaedic Surgery | DX: Z47.89 Encounter for other orthopedic aftercare (principal); Z96.651 Presence of right artificial knee joint | CPT/HCPCS: 97110; 97140; 97164; 97530 ==

== ENCOUNTER 2025-03-31 08:00 | Outpatient (RCR) | payer OTHER, SELFPAY | END 2025-03-31 23:59 | disposition home or self-care (01) | LOC: PT 08:00 | PROVIDERS: Visit Provider Orthopaedic Surgery Adult Reconstructive Orthopaedic Surgery | DX: Z47.89 Encounter for other orthopedic aftercare (principal); Z96.651 Presence of right artificial knee joint | CPT/HCPCS: 97110; 97140; 97164; 97530 ==